=== PATIENT | female | born 1990 | race Caucasian/White ===

== ENCOUNTER 2019-03-01 14:06 | Outpatient (RCR) | payer OTHER, SELFPAY ==
--- NOTE | 2019-03-01 15:01 | HP.PTEVAL_ITS ---
Patient's Visit Information RONALDO WHITTEN is a 28 year old F referred to Physical Therapy by VERNA Townsend with a diagnosis of LBP. Date of Evaluation: 03/01/19 Physical Therapist: BLADIMIR Lewis - Visit Plan Frequency: 2x /Week Duration: 4 Weeks Plan: 2X/ week for 4 weeks for AT for neutral spine core stability, postural exercises, hip strength with HEP - Subjective Findings: For about a month had dull ache back pain and then it went into extreme pain. Took some images and ER (February 15) said DDD and her Dr said it was a HD. Current symptoms: sharp stabbing pain if stride with walking, can't sit or stand for greater than 30 min and will get sharp pain. She has not been lifting but hard with her little ones at home. Pt reports that her pain is even on bothe sides and just to the knee. SHe has a desk job. Pt is seeing a pain Dr tomorrow. Pain in L hip and down to L side ( lateral) pain. - Pain Back pain Pain Intensity (Out of 10): 6 L leg Pain Intensity (Out of 10): 6 - Objective Gait: normal gait pattern. Trunk AROM: ext 75%, flexion 75%. + SLUMP test on the L. +SLR test on the L. LE MMT: Pt is able to walk on heels and on toes without issue but does have increase back pain on the L when walking on her heels. B hip flex 4-/5, B knee ext 4-/5, B knee flex 4-/5, B hip abd 4/5, pt is able to do 3/4 normal ROM bridge but has some pain with it. Prone lying X 4 min ( started with pain in mid back and down the L into buttock)...... pain stayed about the same. Prone lying to TIM X 10 no change in pain. Prone to press up X 10 ( no change in pain ... pain was still in LB and L hip). Supine DKC X 10 ..... no change in hip pain or back pain. - Goals Goal 1:: I HEP Goal Time Frame: 4-6 Weeks Goal 2:: Decrease back and L leg pain to 2/10 after sitting or standing Goal Time Frame: 4-6 Weeks Goal 3:: Be able to sit at work or stand for 30 min with less than 4/10 back pain Goal Time Frame: 4-6 Weeks - Rehabilitation Potential Rehabilitation Potential: Good - Anticipated Interventions Patient/Client Instruction: Educate patient on: Condition, Plan of Care For the Purpose of:: To decrease pain, To increase ROM, To improve nutrient delivery to tissue, To improve muscle performance and motor function, To improve ability to perform ADL's, To improve performance and independence with ADL's, To decrease level of supervision to perform tasks, To improve ability of physical actions for home/community/work/leisure, To improve gait and locomotor functions, To improve health of tissue, To decrease soft tissue restriction, To increase flexibility/ROM Therapeutic Exercise to Include: Strength training, Postural training, Flexibilty training, Gait and locomotor training, Active ROM, Dynamic Lumbar Stabilization, Nilam Exercises For the Purpose of:: To decrease pain, To decrease swelling/inflammation, To increase ROM, To improve nutrient delivery to tissue, To improve muscle performance and motor function, To improve ability to perform ADL's, To increase tolerance to activity/condition/position, To improve performance and independence with ADL's, To decrease level of supervision to perform tasks, To improve ability of physical actions for home/community/work/leisure, To improve gait and locomotor functions, To improve health of tissue, To decrease soft tissue restriction Thank you for the opportunity to evaluate your patient. For Medicare and Medicare HMO plans, please review the plan of care and approve it. It will need to be FAXED BACK to us at [phone] for Medicare purposes. For Medicare only, by signing this I certify the plan of care. Please let me know if there are questions or concerns regarding this plan of care. Physician Signature: Date:
--- NOTE | 2019-06-08 11:18 | HP.PTDCNRP_ITS ---
HP - Discharge Summary (1) - Patient Information RONALDO WHITTEN was seen in my office for initial evaluation on 03/01/19. The following Plan of Care was established for this patient: Initial Frequency: 2x /Week Initial Duration: 4 Weeks - Anticipated Interventions Patient/Client Instruction: Educate patient on: Condition, Plan of Care For the Purpose of:: To decrease pain, To increase ROM, To improve nutrient delivery to tissue, To improve muscle performance and motor function, To improve ability to perform ADL's, To improve performance and independence with ADL's, To decrease level of supervision to perform tasks, To improve ability of physical actions for home/community/work/leisure, To improve gait and locomotor functions, To improve health of tissue, To decrease soft tissue restriction, To increase flexibility/ROM Therapeutic Exercise to Include: Strength training, Postural training, Flexibilty training, Gait and locomotor training, Active ROM, Dynamic Lumbar Stabilization, Nliam Exercises For the Purpose of:: To decrease pain, To decrease swelling/inflammation, To increase ROM, To improve nutrient delivery to tissue, To improve muscle performa nce and motor function, To improve ability to perform ADL's, To increase tolerance to activity/condition/position, To improve performance and independence with ADL's, To decrease level of supervision to perform tasks, To improve ability of physical actions for home/community/work/leisure, To improve gait and locomotor functions, To improve health of tissue, To decrease soft tissue restriction This patient was last seen in our office 03/01/19. Pertinent comments regarding their Physical therapy will appear below: Pt cancelled her 2 two appointments after her initial eval. SHe will be discharged at this time. At this point I will be discontinuing this patient from physical therapy. I would be happy to see this patient again in the future if found appropriate by the physician. Thank you! Lidya Mcgee, MPT
== END 2019-03-01 19:00 | disposition home or self-care (01) ==
LOC: PT 14:06
PROVIDERS: Family Provider Physician Assistant Medical; PCP Physician Assistant Medical; Referring Provider Physician Assistant Medical; Visit Provider Physician Assistant Medical
DX: M54.5 Low back pain (principal)
CPT/HCPCS: 97161

== ENCOUNTER 2020-01-01 21:25 | Emergency (ER) | payer OTHER, SELFPAY ==
[2020-01-01 21:25] VITALS: BP 145/80; PULSE 88; RESP 18; TEMP 36.7; O2SAT 96; BMI 40.8; BMI 41.7
--- NOTE | 2020-01-01 21:45 | ED.DCSUM_ITS ---
History of Present Illness Chief Complaint: Back Informant: Patient Onset: Yesterday Context: Sudden Onset Injury: Lifting, Twisting, Bending, - - Housework Timing: Continuous Quality: Dull, Aching Location: Lumbar, Left Leg - Lateral proximal half of the left thigh Current Severity: Mild Maximum Severity: Severe Worsened by: improves with: Movement, Bending Relieved by: Nothing Associated Symptoms: Radiation to Right Leg, - - She denies bowel bladder dysfunction. She denies saddle paresthesia or anesthesia. She denies foot drop. She denies buckling of her knees. She denies trauma. She denies fever or chills. She had similar problem last year and had imaging performed i.e. x- rays and CAT scan. She states she was told that she had an abnormality of her sacrum. Narrative: Patient is a 29-year-old woman who presents with low back pain that radiates lateral proximal portion of the left thigh. She has no neurovascular findings or symptoms. Patient does endorse 60 pound weight gain over the past 12 months. She denies dysuria, frequency, urgency or hematuria. She denies rash. She denies any allergies to medication. 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 (2) Iron deficiency Status: Chronic (3) History of cholecystectomy Status: Inactive Past Medical History - Allergies and Home Meds Allergies/Adverse Reactions: Allergies No Known Allergies Allergy (Verified 01/01/20 21:29) Primary Care Physician: Danielle Clark PA [NON-STAFF] - Prior records reviewed: Yes Surgical History: noncontributory Lives: Spouse/ Significant Other, With Family Smoking Status: Never smoker Alcohol: Rare Drugs: None Review of Systems General: Denies: Chills, Fever, Sweats, Weight loss Eyes: Denies: Visual changes - bilaterally, Blurred Vision - bilaterally, Diplo imani ENT: Denies: Rhinorrhea, Sore throat Cardiovascular: Denies: Chest pain, Palpitations Respiratory: Denies: Dyspnea, Cough, Dyspnea on exertion Gastrointestinal: Denies: Abdominal pain, Nausea, Vomiting, Diarrhea, Melena, Hematochezia Genitourinary: Denies: Dysuria, Hematuria, Frequency Musculoskeletal: Reports: Back pain, Extremity Pain. Denies: Myalgias, Arthralgias, Neck pain, Swelling, -, - Skin: Denies: Rash, Wounds Neurological: Denies: Headache, Weakness, Parasthesia, Numbness Hematologic: Denies: Easy bruising, Easy bleeding Physical Exam Vital Signs/Narrative: Vital Signs Temp Pulse Resp BP Pulse Ox 01/01/20 21:25 98.0 F 88 18 145/80 H 96 Inital Vital Signs reviewed: Yes General: Well nourished, Well developed, Obese Head: Normocephalic, Atraumatic Eyes: Perrl, EOMI. Negative for: Pale conjunctiva, Scleral icterus ENT: Moist mucous membranes, No rhinorrhea Neck: Supple, Nontender Cardiovascular: Regular rate, Regular rhythm, No murmurs, Normal S1, Normal S2 Respiratory: No distress, CTA bilaterally, Chest nontender Abdomen: Soft, Nontender, Nondistended, Normal bowel sounds Back: Normal Inspection, Paraspinal Tenderness, Negative SLR - Right, Negative SLR - Left, - - There is midline tenderness that is out of proportion to tactile stimulus.. Negative for: CVA tenderness Extremeties: Nontender, No edema, Strong Pulses, Symmetric. Negative for: Tenderness, Edema Skin: Normal color, No rash, No Trauma. Negative for: Cyanosis, Diaphoresis, Jaundice Neuro: Alert, Oriented, Normal Strength, Normal Sensation, Normal DTR, Normal Gait, Normal Reflexes - 3+ at the patella and ankle and symmetric. There is no clonus or Babinski sign noted., - - EHL is intact. 5/5 strength plantar and dorsiflexion of her feet. Unable to stand to assess for quadricep weakness. Reflexes: Negative for: Right Clonus, Right Babinski, Left Clonus, Left Babinski Psychological: Normal affect Diagnostic/Tx/Re-eval - Medical Decision Making Patient has pain with 5 degrees elevation left lower extremity. She has increased pain when the leg is lowered to the bed especially if she assists. Since there are no neurovascular findings and no history of trauma imaging was not obtained. She was medicated with IV morphine and Toradol. Will reassess in 30 to 45 minutes. Differential is degenerative disc disease, discitis, herniated disc. Based on history and physical findings most likely is muscular low strain with degenerative disc disease. She was reassessed at 2221. When asked how she was doing and any improvement. She began to cry and say it severe . Patient was reassessed at 20 311. She is no longer crying. She states she feels slightly dizzy. She was informed this is due to the morphine. Her pain has improved. Since there are no neurovascular findings and this is a chronic process with acute exacerbation patient was discharged home with appropriate home-going instructions. ED Disposition - Plan for ED Patient: Disposition: Home or Assisted Living Diagnosis: Acute low back pain without sciatica Instructions: ED Back Pain Acute or Chronic Referrals: Danielle Clark PA [NON-STAFF] - As Needed
[2020-01-01] MEDS: Ondansetron 4 MG/2 ML Vial IV (21:48)
[2020-01-01] MEDS: Morphine 4 MG/ML Syringe IV (21:48)
[2020-01-01] MEDS: Ketorolac 15 MG/ML Vial IV (21:54)
[2020-01-01] MEDS: morphine 8 MG/ML Syringe 6 MG IV (22:53)
[2020-01-01 22:56] VITALS: BP 137/89; PULSE 80; RESP 15; O2SAT 95
[2020-01-01 23:21] VITALS: BP 141/95; PULSE 82; RESP 16; O2SAT 96
== END 2020-01-01 23:22 | disposition home or self-care (01) ==
PROVIDERS: Emergency Provider Emergency Medicine
DX: M54.5 Low back pain (principal); E06.3 Autoimmune thyroiditis; E61.1 Iron deficiency; E66.9 Obesity, unspecified; Z90.49 Acquired absence of other specified parts of digestive tract; Z79.899 Other long term (current) drug therapy
CPT/HCPCS: 96374; 96375; 96376; 99284; A4216; J2405

== ENCOUNTER 2020-01-02 15:49 | Emergency (ER) | payer OTHER, SELFPAY ==
[2020-01-01 21:25] VITALS: BMI 41.7
[2020-01-02 15:51] VITALS: BP 146/90; PULSE 103; RESP 18; TEMP 36.1; O2SAT 96; BMI 37.6
[2020-01-02] MEDS: diazePAM 5 MG Tablet PO (16:10)
--- NOTE | 2020-01-02 16:10 | ED.VISSUMM ---
- ER Visit Summary Date of Service: 01/02/20 Chief Complaint: Back pain History of Present Illness: The patient is a 29 F presenting with back pain. She has history of chronic back pain. She states yesterday she started having right low back pain radiating to her right leg. She states she has been doing housework and cleaning her kitchen but denies any other trauma. She has tried Advil at home. She was seen in the ED yesterday and was given morphine and discharged. She continues to have back pain. She denies bowel or bladder incontinence. She is able to ambulate with pain. No numbness or weakness. No fever. She states her urine has been foul-smelling but denies dysuria, frequency, urgency. Physical Examination: Vitals are stable. Patient is afebrile. Alert no acute distress. HEENT exam is unremarkable. Neck is supple. Lungs are clear and equal bilaterally. Heart is regular rate and rhythm. Back: Right paraspinal lumbar muscle tenderness. Straight leg raise positive at 30 degrees on the right. Normal strength and sensation. No foot drop. Extremities are unremarkable. Skin is warm and dry. No focal neurologic deficit. Remainder of exam is unremarkable. Emergency Department Course and Treatment: Patient was given Valium with improvement. Urinalysis shows 0-5 white blood cells, positive nitrite, 3+ bacteria. Urine culture was sent. She was given Keflex and a prescription for Keflex. She is given short course of Valium. She is advised to follow up with her primary care physician. Advised return to the ED for worsening complaints. Disposition: Discharge home Impression: Acute on chronic back pain This note was generated with [employer] dictation software. It may contain incorrect words, spelling, and punctuation that were not noted in review of the chart prior to signing ED Disposition - Plan for ED Patient: Referrals: Care Physician,No Primary [NON-STAFF] -
[2020-01-02 16:24] LABS: Mucous, Urine 0 SEEN /hpf (<or=2+); Red Blood Cells-Urine 0 SEEN /hpf (0-5); Squamous Epithelial Cells - UA 0 SEEN /hpf (5-10)
[2020-01-02 16:32] LABS: Color, Urine Yellow (Yellow); Glucose, Dipstick Normal (Normal); Ketone-Dipstick Negative (Negative); Leukocyte Esterase-Dipstick 25 /ul (Negative); Nitrite-Dipstick Positive (Negative); Occult Blood-Urine 50 /ul (Negative); Protein-Dipstick 15 mg/dl (Negative); Urine Bilirubin Dipstick Negative (Negative); Urine Clarity Clear (Clear); Urine Urobilinogen Normal (Normal)
[2020-01-02 16:44] LABS: Bacteria 3+ /hpf (None Seen); White Blood Cells 0-5 SEEN /hpf (0-5)
--- NOTE | 2020-01-02 17:06 | ED.DEP ---
ED Disposition - Plan for ED Patient: Instructions: ED Back Pain Acute or Chronic Prescriptions: Cephalexin [Keflex] 500 mg PO Q12 #14 capsule Diazepam [Valium] 5 mg PO BID PRN PRN #5 tablet PRN Reason: Muscle Spasm Referrals: Care Physician,No Primary [NON-STAFF] -
[2020-01-02] MEDS: Cephalexin 250 MG Capsule 500 MG PO (17:17)
== END 2020-01-02 17:22 | disposition home or self-care (01) ==
LOC: ED 16:34
PROVIDERS: Emergency Provider Emergency Medicine; PCP Physician Assistant Medical
DX: M54.5 Low back pain (principal); G89.29 Other chronic pain; Z79.899 Other long term (current) drug therapy
CPT/HCPCS: 81001; 87086; 87088; 87186; 99283

== ENCOUNTER 2020-03-13 16:30 | Outpatient (RCR) | payer OTHER, SELFPAY ==
--- NOTE | 2020-07-21 10:52 | HP.PT.NRP ---
RONALDO WHITTEN was seen in my office for initial evaluation on 02/16/20. The following Plan of Care was established for this patient: Initial Frequency: 2x /Week Initial Duration: 4 Weeks Patient/Client Instruction: Educate patient on: Condition, Plan of Care For the Purpose of:: To decrease pain, To increase ROM, To improve muscle performance and motor function, To improve ability to perform ADL's, To increase tolerance to activity/condition/position, To improve ability of physical actions for home/community/work/leisure, To improve health of tissue, To decrease soft tissue restriction, To increase flexibility/ROM, To improve ability to perform tasks related to life management Therapeutic Exercise to Include: Strength training, Body mechanics, Postural training, Flexibilty training, Dynamic Lumbar Stabilization, Олег Exercises For the Purpose of:: To decrease pain, To increase ROM, To improve muscle performance and motor function, To improve ability to perform ADL's, To increase tolerance to activity/condition/position, To improve ability of physical actions for home/community/work/leisure, To improve health of tissue, To decrease soft tissue restriction, To increase flexibility/ROM, To improve ability to perform tasks related to life management TENS: Yes IF ES: Yes Cryotherapy (ice pack, ice massage): Yes Thermo therapy (hot pack): Yes Ultrasound (thermal/non thermal): Yes For the Purpose of:: To decrease pain, To increase ROM, To improve health of tissue, To decrease soft tissue restriction This patient was last seen in our office . Pertinent comments regarding their Physical therapy will appear below: This patient seen for PT for lumbar pain with олег ex's ,DLS and postural ex's. Doing well thus is d/c At this point I will be discontinuing this patient from physical therapy. I would be happy to see this patient again in the future if found appropriate by the physician. Thank you! Benjie Bourne, PT, Cert MDT, OCS
== END 2020-03-13 19:00 | disposition home or self-care (01) ==
LOC: PT 16:30
PROVIDERS: PCP Physician Assistant Medical; Referring Provider Internal Medicine; Visit Provider Internal Medicine
DX: M54.5 Low back pain (principal)
CPT/HCPCS: 97014; 97032; 97110; 97162; G0283

== ENCOUNTER → 2020-12-26 13:08 | Outpatient (CLI) | payer BC, SELFPAY ==
[2020-10-31 08:11] VITALS: BMI 41.2
[2020-12-26 15:33] LABS: Absolute Lymphocyte Count 2.24 X10^3/uL (0.83-4.51); Absolute Neutrophil Count 3.1 X10^3/uL (2.0-7.7); Basophil# 0.06 X10^3/uL; Eosinophil# 0.36 X10^3/uL; Eosinophils% 5.7 % (0-5); Hematocrit 41.1 % (37-47); Hemoglobin 13.3 g/dL (12.0-15.0); Lymphocyte # 2.24 X10^3/ul (0.83-4.51); Lymphocyte % 35.7 % (19-41); Mean Corp Hgb Conc 32.4 g/dL (32-36); Mean Corpuscular Hgb 29.8 pg (27.0-32.0); Mean Corpuscular Volume 92.2 fL (81-99); Mean Platelet Vol. 9.6 fl (6.2-12.0); Monocyte# 0.51 X10^3/uL; Monocyte% 8.1 % (0-10); NRBC Flagged by Analyzer 0 % (0-5); Neutrophil # 3.09 X10^3/uL (2.7-7.7); Neutrophil % 49.3 % (47-70); Platelet Count 402 K/mm3 (150-450); RBC Distribution Width CV 12.7 % (11.6-14.6); RBC Distribution Width SD 42.9 fl (35.1-43.9); Red Blood Count 4.46 M/mm3 (4.2-5.4); White Blood Count 6.3 K/mm3 (4.4-11.0)
[2020-12-26 16:10] LABS: Vitamin B12 438 pg/mL (211-911); Vitamin D,25 Hydroxy 12.4 ng/mL
[2020-12-26 16:19] LABS: Ferritin 39 ng/mL (8-252); T4 Free Direct 1.24 ng/dL (0.76-1.46); Thyroid Stim Hormone (TSH) 4.41 uIU/mL (0.358-3.74)
== END ==
LOC: BIMLAB 13:09
PROVIDERS: PCP Physician Assistant Medical; Referring Provider Internal Medicine Endocrinology, Diabetes & Metabolism; Visit Provider Internal Medicine Endocrinology, Diabetes & Metabolism
DX: E61.1 Iron deficiency (principal); E03.8 Other specified hypothyroidism; E06.3 Autoimmune thyroiditis; E56.9 Vitamin deficiency, unspecified; E55.9 Vitamin D deficiency, unspecified
CPT/HCPCS: 36415; 82306; 82607; 82728; 84439; 84443; 85025

== ENCOUNTER 2021-10-30 08:15 | Outpatient (CLI) | payer OTHER, SELFPAY ==
[2021-10-30 13:08] LABS: T4 Free Direct 0.85 ng/dL (0.76-1.46); Thyroid Stim Hormone (TSH) 8.99 uIU/mL (0.358-3.74)
[2021-10-30 13:13] LABS: Vitamin D,25 Hydroxy 17.6 ng/mL
== END 2021-10-30 23:59 | disposition home or self-care (01) ==
LOC: BIMLAB 08:20
PROVIDERS: PCP Physician Assistant Medical; Referring Provider Internal Medicine Endocrinology, Diabetes & Metabolism; Visit Provider Internal Medicine Endocrinology, Diabetes & Metabolism
DX: E55.9 Vitamin D deficiency, unspecified (principal); E03.8 Other specified hypothyroidism; E06.3 Autoimmune thyroiditis
CPT/HCPCS: 36415; 82306; 84439; 84443

== ENCOUNTER 2022-05-23 08:07 | Day surgery (SDC) | payer OTHER, SELFPAY ==
[2022-05-23] VITALS (13 sets, daily range): BP systolic 120–144; BP diastolic 84–108; PULSE 77–100; RESP 16–20; TEMP 36.3–37.1; O2SAT 92–98; BMI 42.3
--- NOTE | 2022-05-23 | IMM_PTH ---
PATIENT: RONALDO WHITTEN [place] [facility] [place][id number] AGE/SX: 32/F ROOM: RE05/23/[address]: Dr. Meena Wheeler DO : 1990 BED: DIS: 05/23/2022 SPEC #: [id number] RECD: 05/27/22 13:51 STATUS: ANA REQ #: [id number] BERENICE: 05/23/22 00:[address]: Meena Wheeler DEPT: IMMUNOHISTOCHEMISTRY RECD BY: Alena Dougherty ENTERED: 05/27/22 13:52 SP TYPE: IMMUNO OTHR DR: VERNA Townsend Tissues: B - Uterine cervix, NOS Procedures: p16 (initial) KI-67 (add) P16 (add) PHYSICIAN & INSTITUTION [address] [address] SPECIMEN INFORMATION: Tissue Source: B ? Cervical biopsy Clinical Info: Pelvic pain after Essure, sterilization Specimen Number: [id number] B2 & B3 CPT code: 67915, 81332 x3 METHODOLOGY: Deparaffinized sections of prefer/formalin-fixed tissue or PAP/DQ stained slides are incubated with monoclonal/polyclonal antibodies/oligonucleotide probes. Localization is made via biotin free immunoperoxidase method. Appropriate controls are performed and reacted as expected. Results on target cell population are indicated in the following table: RESULTS: ANTIBODY / CLONE RESULT Block B2 P16 (E6H4) negative Ki-67 (30-9) negative Block B3 P16 (E6H4) negative Ki-67 (30-9) negative These tests were developed and their performance characteristics determined by [facility]. They may not have been cleared or approved by the U.S. Food and Drug Administration. The FDA has determined that such clearance or approval is not necessary. The above immunohistochemical/dualISH markers are ordered and reviewed by the Pathologist. INTERPRETATION: Juan R Cervix, LEEP conization: No evidence of dysplasia. AM:sergio 05/28/2022
[2022-05-23] MEDS: Lactated Ringers 1,000 ML 15 ML IV (08:10)
[2022-05-23 08:44] LABS: Internal QC Validated? YES +Cl - CLEAR BKGD; Pregnancy, Urine Negative Negative
[2022-05-23 08:45] LABS: Hematocrit 42.3 % (37-47); Hemoglobin 13.8 g/dL (12.0-15.0); Mean Corp Hgb Conc 32.6 g/dL (32-36); Mean Corpuscular Hgb 29.9 pg (27.0-32.0); Mean Corpuscular Volume 91.8 fL (81-99); Mean Platelet Vol. 9.3 fl (6.2-12.0); Platelet Count 391 K/mm3 (150-450); RBC Distribution Width CV 12.2 % (11.6-14.6); RBC Distribution Width SD 41.3 fl (35.1-43.9); Red Blood Count 4.61 M/mm3 (4.2-5.4); White Blood Count 6.4 K/mm3 (4.4-11.0)
[2022-05-23 09:07] LABS: Thyroid Stim Hormone (TSH) 0.27 uIU/mL (0.358-3.74)
--- NOTE | 2022-05-23 09:50 | FALS_PTH ---
PATIENT: RONALDO WHITTEN [place] [facility] [place][id number] AGE/SX: 32/F ROOM: RE05/23/[address]: Dr. Meena Wheeler DO : 1990 BED: DIS: 05/23/2022 SPEC #: [id number] RECD: 05/23/22 15:01 STATUS: ANA SERENE #: [id number] BERENICE: 05/23/22 09:[address]: Meena Wheeler DEPT: SURGICAL PATHOLOGY RECD BY: Re Cowan ENTERED: 05/24/22 09:57 SP TYPE: FALL TUBES OTHR DR: VERNA Townsend Tissues: A - Fallopian tube B - Uterine cervix, NOS C - Endocervical Procedures: Surgery Specimen Level II Surgery Specimen Level IV Surgery Specimen Level V HEADER OPERATION: Laparoscopic salpingectomy with Essure device removal PRE-OP DIAGNOSIS: Pelvic pain after Essure placement, sterilization TISSUE SUBMITTED: A - Bilateral fallopian tubes, B - Cervix, LEEP conization, C - Endocervical curettings MICROSCOPIC DIAGNOSIS A. Right and left fallopian tubes, bilateral salpingectomies: Complete cross-sections of fallopian tubes with no pathologic change. B. Cervix, LEEP conization: No pathologic change. See comment. C. Endocervix, curettings: Rare strips of benign superficial glandular mucosa. AM:sergio 05/27/2022 AM:sergio 05/28/2022 COMMENT B. Results from immunohistochemistry ([id number]) for surrogate HPV marker (p16) will be reported separately. Case has been reviewed in consultation with Dr. Mack who concurs with the above diagnosis. IDC:SJ MICROSCOPIC DESCRIPTION Slides are reviewed. GROSS DESCRIPTION A - Received in fixative is one container labeled with the patient's name and designated bilateral fallopian tubes. The specimen consists of bilateral fallopian tubes including fimbrial ends. One fallopian tube measures 8 cm in length and 0.5 cm in diameter. The second fallopian tube is received in multiple pieces and measures 7.5 cm in length and 0.4 cm in diameter. The fallopian tube received in multiple pieces also shows a metallic coiled wire device consistent with Essure device. No Essure device is noted in the intact fallopian tube. The fallopian tubes are not identified as right or left. Sections reveal unremarkable cut surfaces. Vice President Education sections are submitted in two cassettes as follows: 1 - intact fallopian tube, 2 - fallopian tube received in multiple pieces. B - Received in fixative is one container labeled with the patient's name and designated cervix, LEEP conization. The specimen consists of three pieces of valenzuela, indurated tissue measuring 1.1 x 0.6 x 0.3 cm and 1 x 0.5 x 0.2 and 1 x 0.5 x 0.3 cm. All three pieces are inked and serially sectioned. The entire specimen is submitted in three cassettes with each cassette containing one piece. C - Received in fixative is one container labeled with the patient's name and designated endocervical curettings. The specimen consists of multiple irregular fragments of valenzuela mucoid tissue that in aggregate measure 0.5 x 0.1 x 0.1 cm. The specimen is totally submitted in one cassette. / SJ:rg 05/24/2022 TC:3 CPT: 57653 x2, 08974 , 86536
--- NOTE | 2022-05-23 09:50 | FALS_PTH ---
PATIENT: RONALDO WHITTEN LOC: [facility] – [place] U#:[id number] AGE/SX: 32/F ROOM: RE05/23/[address]: Dr. Meena Wheeler DO : 1990 BED: DIS: 05/23/2022 SPEC #: [id number] RECD: 05/23/22 15:01 STATUS: ANA SERENE #: [id number] BERENICE: 05/23/22 09:[address]: Meena Wheeler DEPT: SURGICAL PATHOLOGY RECD BY: Re Cowan ENTERED: 05/24/22 09:57 SP TYPE: FALL TUBES OTHR DR: VERNA Townsend Tissues: A - Fallopian tube B - Uterine cervix, NOS C - Endocervical Procedures: Surgery Specimen Level II Surgery Specimen Level IV HEADER OPERATION: Laparoscopic salpingectomy with Essure device removal PRE-OP DIAGNOSIS: Pelvic pain after Essure placement, sterilization TISSUE SUBMITTED: A ? Bilateral fallopian tubes, B ? Cervical biopsy, C ? Endocervical curettings MICROSCOPIC DIAGNOSIS A. Right and left fallopian tubes, bilateral salpingectomies: Complete cross-sections of fallopian tubes with no pathologic change. B. Cervix, biopsy: No pathologic change. See comment. C. Endocervix, curettings: Rare strips of benign superficial glandular mucosa. AM:sergio 05/27/2022 COMMENT B. Results from immunohistochemistry ([id number]) for surrogate HPV marker (p16) will be reported separately. Case has been reviewed in consultation with Dr. Mack who concurs with the above diagnosis. IDC:SJ MICROSCOPIC DESCRIPTION Slides are reviewed. GROSS DESCRIPTION A - Received in fixative is one container labeled with the patient's name and designated bilateral fallopian tubes. The specimen consists of bilateral fallopian tubes including fimbrial ends. One fallopian tube measures 8 cm in length and 0.5 cm in diameter. The second fallopian tube is received in multiple pieces and measures 7.5 cm in length and 0.4 cm in diameter. The fallopian tube received in multiple pieces also shows a metallic coiled wire device consistent with Essure device. No Essure device is noted in the intact fallopian tube. The fallopian tubes are not identified as right or left. Sections reveal unremarkable cut surfaces. Director Of Outside Sales sections are submitted in two cassettes as follows: 1 - intact fallopian tube, 2 - fallopian tube received in multiple pieces. B - Received in fixative is one container labeled with the patient's name and designated cervical biopsy. The specimen consists of three pieces of valenzuela, indurated tissue measuring 1.1 x 0.6 x 0.3 cm and 1 x 0.5 x 0.2 and 1 x 0.5 x 0.3 cm. All three pieces are inked and serially sectioned. The entire specimen is submitted in three cassettes with each cassette containing one piece. C - Received in fixative is one container labeled with the patient's name and designated endocervical curettings. The specimen consists of multiple irregular fragments of valenzuela mucoid tissue that in aggregate measure 0.5 x 0.1 x 0.1 cm. The specimen is totally submitted in one cassette. / SJ:rg 05/24/2022 TC:3 CPT: 92237 x2, 40414 x2
--- NOTE | 2022-05-23 10:32 | DCINST_ITS ---
Discharge Instructions Diet Discharge Diet: No restrictions Activity Discharge Activity: May Drive (Once you are no longer taking Percocet, and you feel you can slam on a brake or turn a steering wheel sharply) and May Shower May resume sexual activity in: 4 weeks (No intercourse, tampons, hot tubs, baths, or pools for 4 weeks) Ice area for (Minutes): 15 Weight Bearing Status: Weight bearing as tolerated Lifting Restrictions: Nothing greater than 10-15 pounds for 1st week Dressing / Incision Call your doctor if your incision/area has: Continuous Slow Oozing, Sudden Increased Bleeding, Increased Pain/ Swelling, Increased Redness, Foul Smelling Discharge and Swelling at the incision site Call your doctor if you observe: Fever of 101 or Higher, Coldness, Increased Pain, Numbness or Tingling, Change in Color, Inability to urinate, Inability to have a bowel movement, Using more than 1 pad per hour, Shortness of breath, Dizziness, Fainting spells, Swelling in the ankles, Chest pain, Increased palpitations (irregular heartbeat), Calf discomfort and Uncontrolled pain Remove Dressing in: leave until fall off Cleanse incision/area with: Soap & Water Follow Up Care Please Follow Up With: Meena Wheeler DO When: 1 week for incision check and follow up Test Results: Test results from this visit will be discussed in further detail at your follow- up appointment, if applicable. Discharge Plan Admission Primary Reason for Your Visit: surgery Attending Provider: Meena Wheeler Primary Care Provider: Danielle Clark Discharge Orders/Prescriptions Prescriptions: New oxycodone-acetaminophen [Percocet] 5-325 mg tablet 1 tab PO Q6H PRN (Reason: pain) 7 Days Qty: 10 0RF ibuprofen 600 mg tablet 600 mg PO Q6H PRN (Reason: pain) Qty: 20 0RF Continued multivitamin Tablet 1 tab PO DAILY levothyroxine 175 mcg tablet 175 mcg PO DAILY Referrals / Follow Up: Danielle Clark PA [Primary Care Provider] - Disposition Disposition (needs filled in before D/C Order can be placed): Home, Self Care
--- NOTE | 2022-05-23 10:33 | OP.PCM_ITS ---
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 Essure devices were in the proper location within the fallopian tubes. Normal-appearing uterus. Normal-appearing bilateral fallopian tubes and bilateral ovaries. No descent of uterus and cervix. Surgeon: Meena Wheeler chemistry faculty member: Rishi MACK Type of Anesthesia: General Special Medications: None Specimen's removed: Bilateral fallopian tubes Bilateral Essure coils Cervical biopsy Endocervical curettings Drains: None Estimated Blood Loss (mL): < 50 cc Fluids Replaced: 1200 cc Description of Procedure: Patient was taken to the operating room where general anesthesia was induced. She was prepped and draped in the dorsal lithotomy position using yellowfin stirrups. From below a weighted speculum was placed and single-tooth tenaculum was placed on the anterior lip of the cervix. An acorn uterine manipulator was placed. The weighted speculum was removed. Gloves were changed and attention was turned to the abdominal portion of the case. Local was infiltrated at all port sites. An infraumbilical incision was made to accommodate a 5 mm port. The 5 mm port was placed using the laparoscope under direct visualization. Once confirmed intraperitoneal CO2 insufflation was initiated. The abdomen was inspected and no injury was noted upon entry. The patient was placed in Trendelenburg. A right lateral 5 mm port was placed. A left lateral 5 mm port was placed. The pelvis was inspected and noted to be normal-appearing. Starting on the left side the left fallopian tube was followed out to the fimbriated end and elevated out of the pelvis. The mesosalpinx was serially clamped, cauterized, and transected using the LigaSure device. Once at the leve l of the cornua the left fallopian tube was transected and removed. The remaining Essure coil was removed from the left cornua easily using gentle traction, and the coil was removed from the abdomen. The left cornua was cauterized using LigaSure device. The same was performed on the right. The right fallopian tube was followed out to the fimbriated end and elevated out of the pelvis. The mesosalpinx was serially clamped, cauterized, and transected until reaching the level of the cornua. Once at the level of the cornua the right fallopian tube was transected and removed from the abdomen. The remaining Essure coil device was removed with gentle traction, and it was removed easily. The right cornua was cauterized using LigaSure device. Good hemostasis was noted. The abdomen was exsufflated and all port sites were removed. The incision sites were closed with Monocryl and glue. Attention was then turned to below. Instruments were removed from the vagina. An insulated speculum was placed into the vagina. An insulated single-tooth tenaculum was placed on the anterior lip of the cervix. 1% lidocaine with epinephrine was injected. Using a size 15 mm x 12 mm round loop, a cervical cone biopsy was performed in usual fashion. Endocervical curettings were performed. The rollerball was used to cauterize the endocervix and the cervical bed. Hemostasis was noted. Monsel's was placed. All instruments were removed from the vagina. Vaginal sweep was performed. Instrument, sponge, sharp counts were correct. Patient was taken to recovery room in stable condition. Grafts/Implants Used: None Procedure Start Time: 11:05 Procedure Stop Time: 12:25 Complications None Admit VTE Documentation VTE Present on Admission: No VTE Mechan Device Prophylaxis: SCD's
[2022-05-23] MEDS: Lidocaine 1% /Epi 1:100 (20ml) 20 ML Vial (12:06)
[2022-05-23] MEDS: FERRIC SUBSULFATE 8 GM SOLN (12:16)
== END 2022-05-23 15:53 | disposition home or self-care (01) ==
LOC: SDC 08:09 → AC 08:11
PROVIDERS: Anesthesiology; PCP Physician Assistant Medical; Referring Provider Obstetrics & Gynecology; Visit Provider Obstetrics & Gynecology
PROC: (CPT 58661; principal; 2022-05-23 09:35)
DX: Z30.2 Encounter for sterilization (principal); G89.29 Other chronic pain; R10.2 Pelvic and perineal pain; R87.619 Unspecified abnormal cytological findings in specimens from cervix uteri; E03.9 Hypothyroidism, unspecified; Z79.899 Other long term (current) drug therapy
CPT/HCPCS: 58661; 00840; 81025; 84443; 85027; 86850; 86900; 86901; 88302; 88305; 88307; 88341; 88342; J7120; J2405

== ENCOUNTER → 2022-10-23 | Outpatient (CLI) | payer OTHER, SELFPAY ==
[2022-10-23 12:43] LABS: Vitamin D,25 Hydroxy 16.7 ng/mL
[2022-10-23 13:13] LABS: T4 Free Direct 1.53 ng/dL (0.76-1.46); Thyroid Stim Hormone (TSH) 0.87 uIU/mL (0.358-3.74)
== END | disposition home or self-care (01) ==
LOC: BIMLAB 08:55
PROVIDERS: PCP Physician Assistant Medical; Referring Provider Internal Medicine Endocrinology, Diabetes & Metabolism; Visit Provider Internal Medicine Endocrinology, Diabetes & Metabolism
DX: E03.8 Other specified hypothyroidism (principal); E06.3 Autoimmune thyroiditis; E56.9 Vitamin deficiency, unspecified
CPT/HCPCS: 36415; 82306; 84439; 84443

== ENCOUNTER 2023-08-22 07:16 | Day surgery (SDC) | payer OTHER, SELFPAY ==
--- NOTE | 2023-08-22 | EMB_PTH ---
PATHOLOGY RESULTS PATIENT: RONALDO WHITTEN LOC: [facility] [place] U#:[id number] AGE/SX: 33/F ROOM: RE08/22/[address]: Dr. Meena Wheeler DO : 1990 BED: DIS: 08/22/2023 SPEC #: [id number] RECD: 08/22/23 12:05 STATUS: ANA SERENE #: [id number] BERENICE: 08/22/23 00:[address]: Meena Wheeler DEPT: SURGICAL PATHOLOGY RECD BY: Lakesha Sahni ENTERED: 08/22/23 12:06 SP TYPE: ENDOM BX/C Tissues: Endometrium, NOS Procedures: Surgery Specimen Level IV HEADER OPERATION: Hysteroscopy, D & C Symphion PRE-OP DIAGNOSIS: Endometrial polyp, abnormal uterine bleeding TISSUE SUBMITTED: Endometrial curettings MICROSCOPIC DIAGNOSIS Endometrial curettings: Disordered proliferative endometrium. SJ:sergio 08/26/2023 MICROSCOPIC DESCRIPTION Slides are reviewed. GROSS DESCRIPTION Received in fixative is one container labeled with the patient's name and designated endometrial curettings. The specimen consists of multiple irregular fragments of pink soft tissue mixed with blood clot that in aggregate measure 5.0 x 3.0 x 0.2 cm. The entire specimen is submitted in two cassettes. / SJ:rg 08/22/2023 TC:5 CPT: 40470 ADDENDUM ADDENDUM 09/03/2023 10:08 This addendum is added to incorporate an outside pathology consultation report sent due to routine QC review by the pathologists. The case was examined at [facility] (#[id number]) and the following diagnosis was rendered. Irregular secretory endometrium, consist of early secretory endometrium with focal area with feature of disordered proliferative endometrium with superimposed ovulation. Please see complete above mentioned consultation report in EMR
--- OUTSIDE RECORDS SUMMARY | 2023-08-22 07:22 | XMS RPT_ITS | CCD ---
Author Name Unknown Address [id number] [place] [address] Organization [facility] Care Team Providers Care Etymology Teacher Name Role Phone Cesia Sullivan Admitting Unavailable Cesia Sullivan Attending Unavailable Charito Jefferson Primary Care Provider Tavallaee, Zachery M Unavailable [phone] Unavailable Unavailable NO, PHYSICIAN Primary Care Unavailable DELPHINE ALEMAN Attending Unavailab le DELPHINE ALEMAN Attending Unavailab le NO, PHYSICIAN Primary Care Unavailable Charito Jefferson Primary Care Provider Sofi Angel Unavailable No, Physician Primary Care Provider Unavailabl Sofi Watters Attending Unavailable Sofi Melton Referring Unavailable Tavallaee, Zachery Primary Care Unavailable Tavallaee, Zachery Primary Care Unavailable Arabella Knowles Attending Unavailable Arabella Knowles Referring Unavailable Tavallaee, Zachery Primary Care Unavailable Tavallaee, Zachery Attending Unavailable Tavallaee, Zachery Referring Unavailable Charito Jefferson Primary Care Provider [phone] DASHAWN JR., ABHAY Referring Unavailable DASHAWN JR., ABHAY Admitting Unavailable NO, PHYSICIAN Primary Care Unavailable DASHAWN JR., ABHAY Attending Unavailable NO, PHYSICIAN Primary Care Unavailable DASHAWN JR., ABHAY Attending Unavailable NO, PHYSICIAN Primary Care Unavailable DASHAWN JR., ABHAY Attending Unavailable NO, PHYSICIAN Primary Care Unavailable NO, PHYSICIAN Primary Care Unavailable DASHAWN JR., ABHAY Attending Unavailable NO, PHYSICIAN Primary Care Unavailable DASHAWN JR., ABHAY Attending Unavailable NO, PHYSICIAN Primary Care Unavailable DASHAWN JR., ABHAY Attending Unavailable NO, PHYSICIAN Primary Care Unavailable DASHAWN JR., ABHAY Attending Unavailable DASHAWN JR., ABHAY Referring Unavailable DASHAWN JR., ABHAY Admitting Unavailable NO, PHYSICIAN Primary Care Unavailable Sofi Nixon Primary Care Provider [phone] Charito Jefferson Primary Care Provider SOFI BLANCO Attending Unavailable CHARITO CLARK Primary Care Unavailable JAMES WHEELER Attending Unavailable CHARITO CLARK Primary Care Unavailable SOFI BLANCO Attending Unavailable CHARITO CLARK Primary Care Unavailable SOFI BLANCO Referring Unavailable CHARITO CLARK B Primary Care Unavailable SOFI BLANCO Attending Unavailable CHARITO CLARK B Primary Care Unavailable SOFI MELTON Attending Unavailable SOFI MELTON Primary Care Unavailable SOFI MELTON Attending Unavailable SOFI MELTON Primary Care Unavailable SOFI MELTON Attending Unavailable GERONIMO SOFI Jerry Primary Care Unavailable Medications Current Medications Medication Drug Class(es) Dates Sig (Normalized) Sig (Original) 24 hr buPROPion hydrochloride 150 mg extended release oral tablet (7 sources) Aminoketone Start: 08-15-2023 take 1 tablet by mouth once daily in the morning buPROPion XL (Wellbutrin XL) 150 mg 24 hr tablet Indications: Current moderate episode of major depressive disorder without prior episode (CMS/HCC) Take 1 tablet (150 mg) by mouth once daily in the morning. Do not crush, chew, or split. 90 tablet 3 08/15/2023 Active Completed/Discontinued Medications Medication Drug Class(es) Dates Sig (Normalized) Sig (Original) azithromycin 250 mg oral tablet (5 sources) Macrolide Antimicrobial Start: 06-10-2022 End: 06-28-2022 Azithromycin 250 MG Oral Tablet TAKE DIRECTED. Quantity: 6 Refills: 0 Ordered: 10-Jun-2022 Arabella Knowles MD Start : 10-Jun-2022 End : 28-Jun-2022 Complete Problems Active Problems Problem Classification Problem Date Documented Date Episodic/Chronic Abdominal pain (2 sources) Pain in female pelvis; Translations: [Pelvic and perineal pain] Episodic Contraceptive and procreative management (1 source) Sterilization requested; Translations: [Encounter for sterilization] Episodic Fever of unknown origin (1 source) Fever; Translations: [Fever, unspecified] Episodic Mood disorders (5 sources) Moderate major depression, single episode; Translations: [Major depressive disorder, single episode, moderate] Onset: 06-27-2023 06-27-2023 Chronic Nutritional deficiencies (3 sources) Vitamin D deficiency; Translations: [Unspecified vitamin D deficiency] Onset: 03-18-2023 03-18-2023 Chronic Other connective tissue disease (2 sources) Bilateral heel pain; Translations: [Pain in right foot] Episodic Other connective tissue disease (2 sources) Disorder of Achilles tendon; Translations: [Other specified disorders of synovium and tendon, other site] Episodic Other connective tissue disease (2 sources) Plantar fasciitis; Translations: [Plantar fascial fibromatosis] Episodic Other connective tissue disease (6 sources) Pain in right foot; Translations: [Pain in right foot] Episodic Other ear and sense organ disorders (1 source) Otalgia, right ear; Translations: [Right ear pain] Episodic Other female genital disorders (1 source) Abnormal uterine bleeding; Translations: [Other specified abnormal uterine and vaginal bleeding] 07-03-2023 Chronic Other female genital disorders (4 sources) Abnormal uterine bleeding due to endometrial polyp; Translations: [Abnormal uterine and vaginal bleeding, unspecified] Onset: 07-08-2023 07-08-2023 Chronic Other female genital disorders (1 source) Other specified abnormal uterine and vaginal bleeding; Translations: [DUB (dysfunctional uterine bleeding)] Onset: 07-03-2023 Chronic Other female genital disorders (1 source) History of abnormal cervical Papanicolaou smear ; Translations: [Personal history of other diseases of the female genital tract] Episodic Other lower respiratory disease (2 sources) Cough; Translations: [Cough] Episodic Other nutritional; endocrine; and metabolic disorders (11 sources) Body mass index 30+ - obesity; Translations: [Obesity, unspecified] Onset: 01-07-2019 01-07-2019 Chronic Other nutritional; endocrine; and metabolic disorders (2 sources) Morbid obesity; Translations: [Morbid obesity] Chronic Other nutritional; endocrine; and metabolic disorders (1 source) Obesity; Translations: [Obesity, unspecified] Chronic Other nutritional; endocrine; and metabolic disorders (5 sources) Severe obesity; Translations: [Morbid (severe) obesity due to excess calories] Onset: 06-27-2023 Chronic Other nutritional; endocrine; and metabolic disorders (4 sources) Body mass index 40+ - severely obese; Translations: [Morbid (severe) obesity due to excess calories] Onset: 12-06-2022 12-06-2022 Chronic Other nutritional; endocrine; and metabolic disorders (3 sources) Morbid (severe) obesity due to excess calories; Translations: [Class 3 severe obesity with body mass index (BMI) of 40.0 to 44.9 in adult, unspecified obesity type, unspecified whether serious comorbidity present (HCC)] Onset: 12-06-2022 Chronic Other nutritional; endocrine; and metabolic disorders (3 sources) Body mass index (BMI) 40.0-44.9, adult; Translations: [Class 3 severe obesity with body mass index (BMI) of 40.0 to 44.9 in adult, unspecified obesity type, unspecified whether serious comorbidity present (HCC)] Onset: 12-06-2022 Chronic Other upper respiratory disease (3 sources) Seasonal allergy; Translations: [Allergic rhinitis, cause unspecified] Onset: 03-18-2023 03-18-2023 Chronic Other upper respiratory disease (1 source) Congestion of nasal sinus; Translations: [Other disease of nasal cavity and sinuses] Episodic Residual codes; unclassified (1 source) History of female sterilization; Translations: [Other specified postprocedural states] Episodic Residual codes; unclassified (1 source) Postoperative state; Translations: [Other specified postprocedural states] Episodic Screening and history of mental health and substance abuse codes (5 sources) Depression screening positive; Translations: [Encounter for screening for depression] Onset: 06-27-2023 06-27-2023 Episodic Spondylosis; intervertebral disc disorders; other back problems (3 sources) Low back pain; Translations: [Lumbago] Episodic Thyroid disorders (14 sources) Hypothyroidism; Translations: [Hypothyroidism, unspecified] Onset: 01-07-2019 01-07-2019 Chronic Unclassified (2 sources) Post-op Onset: 01-03-2023 Past or Other Problems Problem Classification Problem Date Documented Date Episodic/Chronic Cancer of cervix (11 sources) Low grade squamous intraepithelial lesion on cervical Papanicolaou smear; Translations: [Low grade squamous intraepithelial lesion on cytologic smear of cervix (LGSIL)] Onset: 10-21-2019 10-21-2019 Episodic Immunizations and screening for infectious disease (3 sources) Contact with and (suspected) exposure to other viral communicable diseases; Translations: [Exposure to influenza] Onset: 12-06-2022 Episodic Mood disorders (2 sources) Mood disorders Onset: 06-27-2023 06-27-2023 Other connective tissue disease (2 sources) Pain in right foot; Translations: [Pain in right foot] Onset: 09-27-2022 Episodic Other connective tissue disease (2 sources) Pain in left foot; Translations: [Pain in left foot] Onset: 09-27-2022 Episodic Other connective tissue disease (2 sources) Other specified disorders of synovium and tendon, other site; Translations: [Other specified disorders of synovium and tendon, other site] Onset: 09-27-2022 Episodic Other connective tissue disease (2 sources) Plantar fascial fibromatosis; Translations: [Plantar fascial fibromatosis] Onset: 09-27-2022 Episodic Other non-traumatic joint disorders (5 sources) Hip pain; Translations: [Pain in joint, pelvic region and thigh] Onset: 03-18-2023 Resolved: 03-18-2023 03-18-2023 Episodic Other nutritional; endocrine; and metabolic disorders (11 sources) Abnormal weight gain; Translations: [Abnormal weight gain] Onset: 01-07-2019 01-07-2019 Episodic Other screening for suspected conditions (not mental disorders or infectious disease) (2 sources) Cancer cervix screening status; Translations: [Encounter for screening for malignant neoplasm of cervix] Onset: 12-06-2022 Episodic Sexually transmitted infections (not HIV or hepatitis) (13 sources) Abnormal cervical Papanicolaou smear; Translations: [Cervical high risk human papillomavirus (HPV) DNA test positive] Onset: 10-21-2019 10-21-2019 Episodic Unclassified (2 sources) Onset: 06-27-2023 06-27-2023 Urinary tract infections (4 sources) Urinary tract infectious disease; Translations: [Urinary tract infection, site not specified] Onset: 03-19-2023 03-19-2023 Episodic Viral infection (10 sources) Verruca plantaris; Translations: [Plantar wart] Onset: 09-27-2022 Episodic Results Test Name Value Interpretation Reference Range Facil ity Vital Signs Date Time Vital Sign Value Performing Clinician Facility 07-08-2023 09:19-0500 Body weight 125.19 kg Sofi Blanco APRN.CNP Work Phone: [facility] 07-08-2023 09:19-0500 Diastolic blood pressure 86 mm[Hg] Sofi Blanco APRN.OIL PROCESS STILLMAN Work Phone: [facility] 07-08-2023 09:19-0500 Systolic blood pressure 120 mm[Hg] Sofi Blanco APRN.OIL PROCESS STILLMAN Work Phone: [facility] 06-27-2023 09:18-0400 Body height 170.2 cm Sofi Melton APRN-OIL PROCESS STILLMAN Work Phone: [facility] 06-27-2023 09:18-0400 Body mass index (BMI) [Ratio] 41.97 kg/m2 Sofi Melton APRN-OIL PROCESS STILLMAN Work Phone: [facility] 06-27-2023 09:18-0400 Body weight 121.56 kg Sofi Melton APRN-OIL PROCESS STILLMAN Work Phone: [facility] 06-27-2023 09:18-0400 Diastolic blood pressure 82 mm[Hg] Sofi Melton APRN-OIL PROCESS STILLMAN Work Phone: [facility] 06-27-2023 09:18-0400 Heart rate 82 /min Sofi Melton APRN-OIL PROCESS STILLMAN Work Phone: [facility] 06-27-2023 09:18-0400 SaO2% (BldA) [Mass fraction] 98 % Sofi Melton APRN-OIL PROCESS STILLMAN Work Phone: [facility] 06-27-2023 09:18-0400 Systolic blood pressure 122 mm[Hg] Sofi Melton APRN-OIL PROCESS STILLMAN Work Phone: [facility] 01-03-2023 10:08-0400 Body temperature 98.2 [degF] Abhay Miranda Jr., DPNikhil Work Phone: [facility] 01-03-2023 10:08-0400 Diastolic blood pressure 85 mm[Hg] Abhay Miranda Jr., DPM Work Phone: [facility] 01-03-2023 10:08-0400 Heart rate 80 /min Abhay Miranda Jr., DPM Work Phone: [facility] 01-03-2023 10:08-0400 Systolic blood pressure 146 mm[Hg] Abhay Miranda Jr., DPM Work Phone: [facility] 12-06-2022 11:02-0400 Diastolic blood pressure 88 mm[Hg] Abhay Miranda Jr., DPM Work Phone: [facility] Encounters Encounter Date Encounter Type Care Provider Facility Start: 08-15-2023 End: 08-15-2023 ambulatory [facility] Facility:[facility] Start: 08-15-2023 End: 08-15-2023 ambulatory SOFI MELTON [facility] Start: 08-15-2023 End: 08-15-2023 Office outpatient visit 15 minutes Sofi Melton APRN-OIL PROCESS STILLMAN Work Phone: [facility] Procedures Date Procedure Procedure Detail Performing Clinician Start: 07-03-2023 transvaginal Sofi hidalgo APRN.OIL PROCESS STILLMAN Work Phone: Start: 12-06-2022 Microscopic observat ion [Identifier] in Cervix by Cyto stain Abhay Miranda Jr., DPM Work Phone: Start: 11-29-2022 SKIN PREP Abhay mcbride DPM Work Phone: Start: 11-01-2022 Lipid 1996 panel - S apoorva or Plasma Sofi Melton SENIOR GAMES TECHNICIAN-OIL PROCESS STILLMAN Work Phone: Start: 09-27-2022 NURSING COMMUNICATIO N - DO NOT USE IN ORDER SETS Abhay Miranda DPM Work Phone: Start: 10-25-2021 Microscopic observat ion [Identifier] in Cervix by Cyto stain Abhay Miranda Jr., DPM Work Phone: Cholecystectomy Zachery correia Work Phone: Plan of Treatment Date Care Activity Detail Author Start: 2039 Zoster Vaccines (1 of 2) Zoster Vaccines (1 of 2) [facility] Start: 12-07-2027 HPV Testing HPV Testing [facility] Start: 12-07-2027 Pap Testing Pap Testing [facility] Start: 12-07-2027 Screening for malignant neoplasm of cervix [facility] Start: 11-02-2027 Lipid panel Lipid Panel [facility] Start: 10-25-2026 HPV TESTING HPV TESTING [facility] Start: 10-25-2026 PAP TESTING PAP TESTING [facility] Start: 12-06-2025 Screening for malignant neoplasm of cervix [facility] Start: 10-25-2024 Screening for malignant neoplasm of cervix Pap Smear [facility] Start: 07-02-2024 End: 07-02-2024 Patient encounter procedure 07/02/2024 9:00 AM EST Office Visit [facility] [address] [place] [id number] Sofi Melton, SENIOR GAMES TECHNICIAN-OIL PROCESS STILLMAN [address] [place], [place] [id number] [facility] Start: 06-28-2024 Yearly Adult Physical Yearly Adult Physical [facility] Start: 06-27-2024 End: 06-27-2024 CBC W Auto Differential panel - Blood CBC and Auto Differential Lab Routine Wellness examination Expected: 06/27/2024 (Approximate), Expires: 06/27/2024 [facility] Service Area Work Phone: Payers Date Payer Category Payer Unknown MMO MMO [employer] [id number] 2021-Present [phone] [address] [place] [address] PPO [id number] 2021 Unknown 2021 Unknown [id number] 1989 Unknown [id number] 02 1989 Unknown [id number] [id number] 02 1989 Unknown [id number] [id number] 56 1989 Unknown [id number] 2.16.840.1.863031.3.579.2.3 56 1989 Unknown [id number] 2.16.840.1.670322.3.579.2.3 56 1989 Unknown [id number] [id number] 03 1989 Unknown [id number] 2.16.840.1.885360.3.579.2.9 03 1989 Unknown [id number] 2.16.840.1.472198.3.579.2.9 03 1989 Unknown [id number] 2.16.840.1.735677.3.579.2.9 03 1989 Unknown [id number] 2.16.840.1.216761.3.579.2.9 03 1989 Unknown [id number] 2.16.840.1.683281.3.579.2.9 03 1989 Unknown [id number] 2.16.840.1.730504.3.579.2.9 03 1989 Unknown [id number] 2.16.840.1.524456.3.579.2.9 03 1989 Unknown [id number] 2.16.840.1.376985.3.579.2.9 03 1989 Unknown [id number] 2.16.840.1.303702.3.579.2.1 1989 Unknown [id number] 2.16.840.1.366709.3.579.2.1 244 1989 Unknown [id number] [id number] 244 [facility] [id number] Unknown [id number] Social History Date Type Detail Facility Start: 09-19-2018 End: 03-19-2023 Tobacco smoking status NHIS Never smoked tobacco [facility] Start: 09-19-2018 End: 03-19-2023 Tobacco use and exposure Smokeless tobacco non-user [facility] Start: 11-09-2021 End: 06-07-2022 Alcohol intake Ex-drinker (finding) [facility] Start: 10-15-2019 End: 10-25-2019 History SDOH Alcohol Frequency 1 [facility] Start: 10-15-2019 History SDOH Social Connections Phone 4 [facility] Start: 10-15-2019 End: 10-25-2019 History SDOH Social Connections Membership 2 [facility] Start: 10-15-2019 History SDOH Social Connections Living 3 [facility] Start: 10-15-2019 End: 10-25-2019 History SDOH Physical Activity DPW 5 [facility] Start: 10-15-2019 History SDOH Physica l Activity MPS 9 [facility] Start: 10-15-2019 Education 13 [facility] Start: 1990 Sex Assigned At Female [facility] Start: 10-30-2021 End: 06-27-2023 Exposure to SARS-CoV-2 (event) Not sure [facility] Start: 11-29-2022 End: 06-27-2023 Never smoked tobacco Never smoked tobacco [facility] Work Phone: Start: 09-27-2022 End: 08-15-2023 Alcohol intake Current drinker of alcohol (finding) [facility] Start: 01-20-2022 End: 12-06-2022 Alcohol Comment occasional [facility] Start: 1990 Sex Assigned At Not on file [facility] Start: 11-29-2022 End: 06-27-2023 Tobacco use panel [facility] Start: 06-26-2023 Alcohol Comment Maybe once a w [place] one or two glasses on the weekends [facility] Work Phone: Do you belong to any clubs or organizations such as pentecostalism groups, unions, fraternal or athletic groups, or school groups? No [facility] Work Phone: Are you now , , , , never or living with a partner? [facility] Work Phone: How often to you hav e a drink containing alcohol? Never [facility] Work Phone: Average Number of Drinks Not on file [facility] Work Phone: Do you feel stress - tense, restless, nervous, or anxious, or unable to sleep at night because your mind is troubled all the time - these days [OSQ] To some extent [facility] Work Phone: (I/We) worried wheth er (my/our) food would run out before (I/we) got money to buy more. Never true [facility] Work Phone: Start: 11-07-2021 Gender identity Identifies as female gender (finding) [facility] Start: 11-07-2021 Sexual orientation Heterosexual (fin ding) [facility] Start: 08-05-2023 End: 08-15-2023 Exposure to SARS-CoV-2 (event) Unable to assess [facility] Work Phone: NEGATED: Highlighted rowStart: NINF History of tobacco use Passive smoker [facility] Clinical Notes 11-27-2021 to 08-15-2023 ISIDRA Cole - 08/15/2023 9:40 AM Sofi Rice APRN.CNP - 07/08/2023 9:11 AM Kalee Blankenship RDMS - 07/03/2023 1:45 PM ISIDRA Dorado - 06/27/2023 9:20 AM EDT Note Date & Type Note Facility 08-15-2023 History of Present illness Narrative Subjective Patient ID: Ronaldo Whitten is a 33 y.o. female who presents for Follow-up (1 month med check ). VIRTUAL APPOINTMENT BEING PERFORMED DUE TO COVID-19 (CORONAVIRUS) HPI: Presents today for 1 MONTH MED CHECK. SHE IS DOING WELL ON MED AND DENIES SIDE EFFECTS. NO NEW COMPLAINTS THYROID- FOLLOWS WITH ENDO Visit Vitals OB Status Having periods Smoking Status Never Review of Systems Constitutional: Negative for chills, fatigue, fever and unexpected weight change. HENT: Negative for congestion, ear pain, sore throat and trouble swallowing. Eyes: Negative for photophobia, pain, redness and visual disturbance. Respiratory: Negative for apnea, cough, choking, chest tightness, shortness of breath and wheezing. Cardiovascular: Negative for chest pain, palpitations and leg swelling. Gastrointestinal: Negative for abdominal distention, abdominal pain, blood in stool, constipation, diarrhea, nausea and vomiting. Genitourinary: Negative for difficulty urinating, dysuria, flank pain, frequency, hematuria and urgency. Musculoskeletal: Negative for arthralgias, back pain, gait problem, joint swelling, myalgias and neck pain. Skin: Negative for rash and wound. Neurological: Negative for dizziness, seizures, syncope, facial asymmetry, speech difficulty, weakness, numbness and headaches. Psychiatric/Behavioral: Negative for confusion, sleep disturbance and suicidal ideas. The patient is not nervous/anxious. Objective Physical Exam Neurological: Mental Status: She is alert. Psychiatric: Mood and Affect: Mood normal. Behavior: Behavior normal. Thought Content: Thought content normal. Judgment: Judgment normal. Assessment/Plan Problem List Items Addressed This Visit Class 3 severe obesity due to excess calories with serious comorbidity and body mass index (BMI) of 40.0 to 44.9 in adult ([facility]) - Primary Current moderate episode of major depressive disorder without prior episode ([facility]) Relevant Medications buPROPion XL (Wellbutrin XL) 150 mg 24 hr tablet PLEASE MONITOR CLOSELY FOR ANY UNTOWARD SIDE EFFECTS OR COMPLICATIONS OF MEDICATIONS. PATIENT IS STRONGLY ADVISED TO BE COMPLIANT WITH RECOMMENDATIONS. QUESTIONS AND CONCERNS WERE ADDRESSED. INSTRUCTED TO CALL, RETURN SOONER, OR GO TO THE ER, IF SYMPTOMS PERSIST OR WORSEN. THEY VOICED UNDERSTANDING AND DENIES FURTHER QUESTIONS AT THIS TIME. TIME CODE 1. PREPARATION FOR PATIENT'S VISIT (REVIEWING CHART, CURRENT MEDICAL RECORDS, OUTSIDE HEALTH PROVIDER RECORDS, PREVIOUS HISTORY, EXAM, TEST, PROCEDURE, AND MEDICATIONS) 2. FACE TO FACE ENCOUNTER OBTAINING HISTORY FROM THE PATIENT/FAMILY/CAREGIVERS; PERFORMING EVALUATION AND EXAMINATION; ORDERING TESTS OR PROCEDURES; REFERRING AND COMMUNICATING WITH OTHER HEALTHCARE PROVIDERS; COUNSELING AND EDUCATION OF THE PATIENT/FAMILY/CAREGIVERS; INDEPENDENTLY INTERPRETING RESULTS (TESTS, LABS, PROCEDURES, IMAGING) AND COMMUNICATING AND EXPLAINING RESULTS TO THE PATIENT/FAMILY/CAREGIVERS 3. COORDINATION OF CARE; PREPARING AND PRINTING DISCHARGE INSTRUCTIONS AND ANY EDUCATIONAL MATERIAL FOR THE PATIENT/FAMILY/CAREGIVERS. DOCUMENTING CLINICAL INFORMATION IN THE ELECTRONIC MEDICAL RECORD 4. REVIEWING OARRS NEEDED MDM 1) COMPLEXITY: 1 ACUTE ILLNESS, 1 STABLE CHRONIC CONDITION, OR 2 MINOR PROBLEMS ADDRESSED 2)DATA: TESTS INTERPRETED AND OR ORDERED, TOOK INDEPENDENT HISTORY OR RECORDS REVIEWED 3)RISK: LOW RISK DUE TO NATURE OF MEDICAL CONDITIONS/COMORBIDITY OR MEDICATIONS ORDERED OR SURGICAL OR PROCEDURE REFERRAL Follow up as before documented in this encounter [facility] Work Phone: 07-08-2023 Note HNO ID: [id number] Author: Sofi Blanco APRN.ALEKSANDAR Service: ? Author Type: Nurse Practitioner Type: Progress Notes Filed: 07/08/2023 10:19 AM Note Text: Ronaldo Whitten is a 33 year old female who presents for problem visit discuss diagnostic testing results. HPI: Diagnostic testing due to menses every 14-17 days. S/p tubal sterilization. No YAMEL, no problems with anesthesia 07/03/2023 Endometrium, biopsy: - Segments of endometrial polyp, proliferative non-polyp endometrium and benign endocervical tissue. 07/03/2023 Pelvic US Limitations: Body habitus and bowel gas. Uterus: -Size: 9.4 x 4.5 x 5.3 cm -Orientation: Anteverted -Endometrial echo complex: Evaluation of the endometrium was adequate. No endometrial abnormality. The endometrial echo complex measured 0.7 cm. -Cervix: Nabothian cysts are visualized. -Adenomyosis assessment: There are no sonographic findings of adenomyosis. -Fibroids: There are no fibroids. Right Ovary: 2.1 x 2.7 x 2.5 cm -Normal sonographic appearance. Left Ovary: 2.8 x 1.8 x 2.1 cm -Normal sonographic appearance. Free Fluid: No abnormal free fluid is present. 12/06/2022 Pap normal with negative HPV OB History T2 L2 SAB0 IAB0 Ectopic0 Multiple0 Live Births0 Ultrasonic Tester History LMP: 06/22/2023 (Approximate), Having periods Age at Menarche: Age at First : Age at Menopause: Ultrasonic Tester History Comments: Sexual Activity: Yes; Male; Essure Contraception: Tubal Ligation PAST MEDICAL HISTORY Diagnosis Date Hypothyroidism PAST SURGICAL HISTORY Procedure Laterality Date CHOLECYSTECTOMY HX ESSURE Bilateral 2016 Dr Piedad LOCKHART PROCEDURE (W NOTE) 05/23/2022 SALPINGECTOMY Bilateral 05/23/2022 removal of Essure device FAMILY HISTORY Problem Relation Age of Onset Thyroid Mother hypothyroid Colon Cancer Mother 72 colon, liver Liver Cancer Mother Brain Cancer Father 75 Thyroid Sister Thyroid Sister No Known Problems Sister No Known Problems Sister Diabetes Brother No Known Problems Brother No Known Problems Brother Thyroid Paternal Grandmother Social History Tobacco Use Smoking status: Never Smokeless tobacco: Never Vaping Use Vaping Use: Never used Substance Use Topics Alcohol use: Yes Comment: occasional Drug use: Never Current Outpatient Medications Medication Sig buPROPion XL (WELLBUTRIN XL) 150 mg 24 hr tablet levothyroxine (SYNTHROID) 112 mcg tablet Take 175 mcg by mouth once daily. Take on empty stomach. For thyroid fexofenadine ER (HOLLY ALLERGY) 180 mg tablet Take 1 tablet by mouth once daily. multivit with calcium,iron,min (WOMEN'S MULTIPLE VITAMINS ORAL) Take 1 tablet by mouth once daily. Gummie No current facility-administered medications for this visit. Allergies As of Date: 07/08/2023 (No Known Allergies) Fully Assessed 07/03/2023 REVIEW OF SYSTEMS Allergies and current medication updated:Yes EXAM: BP 120/86 Wt 276 lb (125.2kg) LMP 06/22/2023 GENERAL: pleasant, female in no apparent distress CHEST: Normal inspiratory effort NEURO: alert and oriented x3,exam grossly non-focal ASSESSMENT/PLAN: 1. Abnormal uterine bleeding due to endometrial polyp - ICD9: 626.6, 621.0, ICD10: N93.9, N84.0 - discussed findings - endometrial polyp on EMB. Pelvic US normal. Discussed recommended hysteroscopy, JUWAN with endometrial polypectomy with Mirena/Liletta IUD. She does not think she is interested in IUD but will consider due to DUB and BMI 43 that increases her risk of estrogen related cancers. All questions answered. - Surgery scheduling worksheet completed and given to surgery scheduling. She will be contacted by our office. Follow-up as needed. Sofi Blanco APRN.ALEKSANDAR I spent a total of 25 minutes on the date of the service which included preparing to see the patient, [id number] patient care, completing clinical documentation, obtaining and/or reviewing separately obtained history, performing a medically appropriate examination, counseling and educating the patient/family/caregiver, and ordering medications, tests, or procedures. [facility] 07-08-2023 History of Present illness Narrative Ronaldo Whitten is a 33 year old female who presents for problem visit discuss diagnostic testing results. HPI: Diagnostic testing due to menses every 14-17 days. S/p tubal sterilization. No YAMEL, no problems with anesthesia 07/03/2023 Endometrium, biopsy: - Segments of endometrial polyp, proliferative non-polyp endometrium and benign endocervical tissue. 07/03/2023 Pelvic US Limitations: Body habitus and bowel gas. Uterus: -Size: 9.4 x 4.5 x 5.3 cm -Orientation: Anteverted -Endometrial echo complex: Evaluation of the endometrium was adequate. No endometrial abnormality. The endometrial echo complex measured 0.7 cm. -Cervix: Nabothian cysts are visualized. -Adenomyosis assessment: There are no sonographic findings of adenomyosis. -Fibroids: There are no fibroids. Right Ovary: 2.1 x 2.7 x 2.5 cm -Normal sonographic appearance. Left Ovary: 2.8 x 1.8 x 2.1 cm -Normal sonographic appearance. Free Fluid: No abnormal free fluid is present. 12/06/2022 Pap normal with negative HPV OB History T2 L2 SAB0 IAB0 Ectopic0 Multiple0 Live Births0 Ultrasonic Tester History LMP: 06/22/2023 (Approximate), Having periods Age at Menarche: Age at First : Age at Menopause: Ultrasonic Tester History Comments: Sexual Activity: Yes; Male; Essure Contraception: Tubal Ligation PAST MEDICAL HISTORY Diagnosis Date Hypothyroidism PAST SURGICAL HISTORY Procedure Laterality Date CHOLECYSTECTOMY HX ESSURE Bilateral 2016 Dr Piedad LOCKHART PROCEDURE (W NOTE) 05/23/2022 SALPINGECTOMY Bilateral 05/23/2022 removal of Essure device FAMILY HISTORY Problem Relation Age of Onset Thyroid Mother hypothyroid Colon Cancer Mother 72 colon, liver Liver Cancer Mother Brain Cancer Father 75 Thyroid Sister Thyroid Sister No Known Problems Sister No Known Problems Sister Diabetes Brother No Known Problems Brother No Known Problems Brother Thyroid Paternal Grandmother Social History Tobacco Use Smoking status: Never Smokeless tobacco: Never Vaping Use Vaping Use: Never used Substance Use Topics Alcohol use: Yes Comment: occasional Drug use: Never Current Outpatient Medications Medication Sig buPROPion XL (WELLBUTRIN XL) 150 mg 24 hr tablet levothyroxine (SYNTHROID) 112 mcg tablet Take 175 mcg by mouth once daily. Take on empty stomach. For thyroid fexofenadine ER (HOLLY ALLERGY) 180 mg tablet Take 1 tablet by mouth once daily. multivit with calcium,iron,min (WOMEN'S MULTIPLE VITAMINS ORAL) Take 1 tablet by mouth once daily. Gummie No current facility-administered medications for this visit. Allergies As of Date: 07/08/2023 (No Known Allergies) Fully Assessed 07/03/2023 REVIEW OF SYSTEMS Allergies and current medication updated:Yes EXAM: BP 120/86 Wt 276 lb (125.2kg) LMP 06/22/2023 GENERAL: pleasant, female in no apparent distress CHEST: Normal inspiratory effort NEURO: alert and oriented x3,exam grossly non-focal ASSESSMENT/PLAN: 1. Abnormal uterine bleeding due to endometrial polyp - ICD9: 626.6, 621.0, ICD10: N93.9, N84.0 - discussed findings - endometrial polyp on EMB. Pelvic US normal. Discussed recommended hysteroscopy, D&C with endometrial polypectomy with Mirena/Liletta IUD. She does not think she is interested in IUD but will consider due to DUB and BMI 43 that increases her risk of estrogen related cancers. All questions answered. - Surgery scheduling worksheet completed and given to surgery scheduling. She will be contacted by our office. Follow-up as needed. Sofi Blanco APRN.CNP I spent a total of 25 minutes on the date of the service which included preparing to see the patient, [id number] patient care, completing clinical documentation, obtaining and/or reviewing separately obtained history, performing a medically appropriate examination, counseling and educating the patient/family/caregiver, and ordering medications, tests, or procedures. documented in this encounter [facility] 07-03-2023 Note HNO ID: [id number] Author: Kalee Zuleta RDMS Service: ? Author Type: Block Sawyer Type: Progress Notes Filed: 07/03/2023 3:42 PM Note Text: Radiology Service Progress Note PATIENT NAME: Ronaldo Whitten DATE OF SERVICE: July 03, 2023 TIME: 3:42 PM PATIENT IDENTITY VERIFICATION COMPLETED USING TWO (2) IDENTIFIERS: Name and Date of confirmed by patient verbally. FALL SCREENING: Has the patient had 2 falls in the last year or 1 fall with injury or currently using an Ambulatory Assistive Device (Walker, Cane, Wheelchair, Crutches, etc.)? No PATIENT GENDER DATA: Female. status: : No status: NO. PATIENT RELEVANT IMPLANT DATA REVIEWED: Not Applicable RADIOLOGY DEPARTMENT: Ultrasound PERIPHERAL IV DATA: Not applicable SIGNED BY: Kalee Zuleta RDMS RVT July 03, 2023 3:42 PM [facility] 07-03-2023 History of Present illness Narrative Radiology Service Progress Note PATIENT NAME: Ronaldo Whitten DATE OF SERVICE: July 03, 2023 TIME: 3:42 PM PATIENT IDENTITY VERIFICATION COMPLETED USING TWO (2) IDENTIFIERS: Name and Date of confirmed by patient verbally. FALL SCREENING: Has the patient had 2 falls in the last year or 1 fall with injury or currently using an Ambulatory Assistive Device (Walker, Cane, Wheelchair, Crutches, etc.)? No PATIENT GENDER DATA: Female. status: : No status: NO. PATIENT RELEVANT IMPLANT DATA REVIEWED: Not Applicable RADIOLOGY DEPARTMENT: Ultrasound PERIPHERAL IV DATA: Not applicable SIGNED BY: Kalee Zuleta RDMS RVT July 03, 2023 3:42 PM documented in this encounter [facility] 07-03-2023 Note HNO ID: [id number] Author: Sofi Blanco APRN.ALEKSANDAR Service: ? Author Type: Nurse Practitioner Type: Progress Notes Filed: 07/03/2023 5:25 PM Note Text: Field Operations Technician offered: Patient declines. Ronaldo Whitten is a 33 year old female who presents for problem visit abnormal menses. HPI: Vaginal spotting between menses in October 2022. Now having actual menses every 14-17 days lasting 6-7 days. Bleeding often starts with spotting after intercourse and then transitions into menses. Recently diagnosed with depression and started on bupropion XL150 mg . Normal pelvic US 11/13/2021 12/06/2022 Pap normal with negative HPV. LEEP 2021 [facility] Contraception tubal sterilization 10/23/2022 TSH 0.87 - levothyroxine T4 Free 1.53 Vit D 16.7 - taking daily supplement OB History T2 L2 SAB0 IAB0 Ectopic0 Multiple0 Live Births0 Ultrasonic Tester History LMP: 06/22/2023 (Approximate), Having periods Age at Menarche: Age at First : Age at Menopause: Ultrasonic Tester History Comments: Sexual Activity: Yes; Male; Essure Contraception: Tubal Ligation PAST MEDICAL HISTORY Diagnosis Date Hypothyroidism PAST SURGICAL HISTORY Procedure Laterality Date CHOLECYSTECTOMY HX ESSURE Bilateral 2016 Dr Herbert LEEYosef PROCEDURE (W NOTE) 05/23/2022 SALPINGECTOMY Bilateral 05/23/2022 removal of Essure device FAMILY HISTORY Problem Relation Age of Onset Thyroid Mother hypothyroid Colon Cancer Mother 72 colon, liver Liver Cancer Mother Brain Cancer Father 75 Thyroid Sister Thyroid Sister No Known Problems Sister No Known Problems Sister Diabetes Brother No Known Problems Brother No Known Problems Brother Thyroid Paternal Grandmother Social History Tobacco Use Smoking status: Never Smokeless tobacco: Never Vaping Use Vaping Use: Never used Substance Use Topics Alcohol use: Yes Comment: occasional Drug use: Never Current Outpatient Medications Medication Sig buPROPion XL (WELLBUTRIN XL) 150 mg 24 hr tablet levothyroxine (SYNTHROID) 112 mcg tablet Take 175 mcg by mouth once daily. Take on empty stomach. For thyroid fexofenadine ER (HOLLY ALLERGY) 180 mg tablet Take 1 tablet by mouth once daily. multivit with calcium,iron,min (WOMEN'S MULTIPLE VITAMINS ORAL) Take 1 tablet by mouth once daily. Gummie No current facility-administered medications for this visit. Allergies As of Date: 07/03/2023 (No Known Allergies) Fully Assessed 07/03/2023 REVIEW OF SYSTEMS Abdomen: No bloating, early satiety, indigestion, or increased flatulence. No abdominal pain, nausea, vomiting, diarrhea, or constipation. Allergies and current medication updated:Yes EXAM: BP 132/88 Wt 278 lb (126.1kg) LMP 06/22/2023 GENERAL: pleasant, female in no apparent distress CHEST: Normal inspiratory effort ABDOMEN: soft and non-tender PELVIC: external genitalia normal, normal Bartholin's glands, urethra, Waterview's glands, no vulvar lesions, no cervical lesions, physiologic discharge present, normal appearing perineal body and perianal region BIMANUAL: uterus normal size, shape and consistency, no adnexal masses, and non-tender NEURO: alert and oriented x3,exam grossly non-focal ASSESSMENT/PLAN: 1. DUB (dysfunctional uterine bleeding) - ICD9: 626.8, ICD10: N93.8 - US FEMALE PELVIS TRANSVAG - ENDOMETRIAL BIOPSY - done today - SURGICAL PATHOLOGY - PELVIC US [facility] Will schedule visit to discuss results and develop POC. Sofi Blanco APRN.ALEKSANDAR Ybarra is a 33 year old Female who presents today for an endometrial biopsy for abnormal uterine bleeding. test: n/a, prior tubal UNIVERSAL PROTOCOL / SAFETY CHECKLIST Procedure to be Performed: Endometrial Biopsy Sign In: A Moment of CARE was completed. Personnel directly involved with the procedure wore the appropriate PPE (Personal Protective Equipment). Patient/Surrogate Stated/Verified: PATIENT VERIFIED(optional for EMERGENT procedures): Patient name, Date of , Relevant allergies, and The intended procedure Time Out Communication: Intended patient and procedure match the source documents. Consent documented and matches the intended procedure. Sign Out: SIGN OUT (optional for EMERGENT procedures): All instruments, equipment, possible retained foreign bodies accounted for. Post-procedure follow-up management communicated and Plan of Care Visit completed when applicable. PROCEDURE: EXTERNAL GENITALIA: Normal in appearance without lesions VAGINA: Normal in appearance without lesions BIOPSY: Speculum placed into the vagina with excellent visualization of the cervix. Cervix cleaned with betadine. Anterior lip of cervix grasped with single toothed tenaculum. Uterus sounded to 9 cm. Pipelle inserted into the uterus without difficulty and endometrial biopsy obtained. Specimen labeled and sent to pathology. Hemostasis achieved. Procedure Summary: Patient tolerated procedure well. ASSESSMENT: abnormal (more content not included)... [facility] 06-27-2023 History of Present illness Narrative Subjective Patient ID: Ronaldo Whitten is a 33 y.o. female who presents for Annual Exam (NO CONCERNS). HPI: Presents today for 12 MONTH WELLNESS. NO NEW COMPLAINTS DEPRESSION SCREEN POSITIVE TODAY. SHE IS SEEING A COUNSELOR VIA TELE APPTS X 6 MONTHS. SHE STATES THE DEPRESSION/ANGER IS SITUATIONAL. START WELLBUTRIN Visit Vitals BP 122/82 (BP Location: Left arm, Patient Position: Sitting) Pulse 82 Ht 1.702 m (5' 7 ) Wt 122 kg (268 lb) LMP (LMP Unknown) SpO2 98% BMI 41.97 kg/m OB Status Having periods Smoking Status Never BSA 2.4 m Review of Systems Constitutional: Negative for chills, fatigue, fever and unexpected weight change. HENT: Negative for congestion, ear pain, sore throat and trouble swallowing. Eyes: Negative for photophobia, pain, redness and visual disturbance. Respiratory: Negative for apnea, cough, choking, chest tightness, shortness of breath and wheezing. Cardiovascular: Negative for chest pain, palpitations and leg swelling. Gastrointestinal: Negative for abdominal distention, abdominal pain, blood in stool, constipation, diarrhea, nausea and vomiting. Genitourinary: Negative for difficulty urinating, dysuria, flank pain, frequency, hematuria and urgency. Musculoskeletal: Negative for arthralgias, back pain, gait problem, joint swelling, myalgias and neck pain. Skin: Negative for rash and wound. Neurological: Negative for dizziness, seizures, syncope, facial asymmetry, speech difficulty, weakness, numbness and headaches. Psychiatric/Behavioral: Negative for confusion, sleep disturbance and suicidal ideas. The patient is not nervous/anxious. Objective THYROID- FOLLOWS WITH ENDO DR. MARI GONZALEZ IN [place]AW[place] VIT D- DR. GONZALEZ ADDRESSES ALLERGIES- START PRN LORATADINE AND FLONASE Physical Exam Constitutional: Appearance: Normal appearance. She is normal weight. HENT: Head: Normocephalic. Eyes: Extraocular Movements: Extraocular movements intact. Conjunctiva/sclera: Conjunctivae normal. Pupils: Pupils are equal, round, and reactive to light. Cardiovascular: Rate and Rhythm: Normal rate and regular rhythm. Pulses: Normal pulses. Heart sounds: Normal heart sounds. Pulmonary: Effort: Pulmonary effort is normal. Breath sounds: Normal breath sounds. Musculoskeletal: General: Normal range of motion. Cervical back: Normal range of motion. Skin: General: Skin is warm and dry. Neurological: General: No focal deficit present. Mental Status: She is alert and oriented to person, place, and time. Psychiatric: Mood and Affect: Mood normal. Behavior: Behavior normal. Thought Content: Thought content normal. Judgment: Judgment normal. Assessment/Plan Problem List Items Addressed This Visit Wellness examination - Primary PLEASE MONITOR CLOSELY FOR ANY UNTOWARD SIDE EFFECTS OR COMPLICATIONS OF MEDICATIONS. PATIENT IS STRONGLY ADVISED TO BE COMPLIANT WITH RECOMMENDATIONS. QUESTIONS AND CONCERNS WERE ADDRESSED. INSTRUCTED TO CALL, RETURN SOONER, OR GO TO THE ER, IF SYMPTOMS PERSIST OR WORSEN. THEY VOICED UNDERSTANDING AND DENIES FURTHER QUESTIONS AT THIS TIME. TIME CODE 1. PREPARATION FOR PATIENT'S VISIT (REVIEWING CHART, CURRENT MEDICAL RECORDS, OUTSIDE HEALTH PROVIDER RECORDS, PREVIOUS HISTORY, EXAM, TEST, PROCEDURE, AND MEDICATIONS) 2. FACE TO FACE ENCOUNTER OBTAINING HISTORY FROM THE PATIENT/FAMILY/CAREGIVERS; PERFORMING EVALUATION AND EXAMINATION; ORDERING TESTS OR PROCEDURES; REFERRING AND COMMUNICATING WITH OTHER HEALTHCARE PROVIDERS; COUNSELING AND EDUCATION OF THE PATIENT/FAMILY/CAREGIVERS; INDEPENDENTLY INTERPRETING RESULTS (TESTS, LABS, PROCEDURES, IMAGING) AND COMMUNICATING AND EXPLAINING RESULTS TO THE PATIENT/FAMILY/CAREGIVERS 3. COORDINATION OF CARE; PREPARING AND PRINTING DISCHARGE INSTRUCTIONS AND ANY EDUCATIONAL MATERIAL FOR THE PATIENT/FAMILY/CAREGIVERS. DOCUMENTING CLINICAL INFORMATION IN THE ELECTRONIC MEDICAL RECORD 4. REVIEWING OARRS NEEDED MDM 1) COMPLEXITY: 1 ACUTE ILLNESS, 1 STABLE CHRONIC CONDITION, OR 2 MINOR PROBLEMS ADDRESSED 2)DATA: TESTS INTERPRETED AND OR ORDERED, TOOK INDEPENDENT HISTORY OR RECORDS REVIEWED 3)RISK: LOW RISK DUE TO NATURE OF MEDICAL CONDITIONS/COMORBIDITY OR MEDICATIONS ORDERED OR SURGICAL OR PROCEDURE REFERRAL 12 MONTHS WITH LABS -WELLNESS 1 MONTH MED CHECK documented in this encounter [facility] Work Phone: 01-03-2023 History of Present illness Narrative Status post right foot curettage and hyfrecation. Patient is a pleasant 32-year-old male following up today for right foot wart surgery. States that he is feeling really well. No pain, no recurrence. Physical Vascular: DP PT pulses are palpable 2 out of 4. CFT is fair no edema. Derm: The base of the warts is now gone and fully resolved with return of skin lines. No bleeding, or erythema, no signs of infection. Neuro: Intact. Can easily wiggle toes. Assessment and plan patient is a pleasant 32 yo female with right foot painful verrucous lesion status post hyfrecation and curettage. -At this point she is fully healed and this is resolved. Can discontinue bandages or Band-Aids and follow-up as needed for this or any new issues. documented in this encounter [facility] 12-06-2022 History of Present illness Narrative Status post right foot curettage and hyfrecation. Patient is a pleasant 32-year-old male following up today for right foot wart surgery. States that he is feeling really well using topical Silvadene without issues. Feels much better. Physical Vascular: DP PT pulses are palpable 2 out of 4. CFT is fair no edema. Derm: The base of the wound sites are granular there isno streaking no lymphangitis no undermining fluctuance or crepitation. Neuro: Intact. Can easily wiggle toes. Assessment and plan patient is a pleasant 32 yo female with right foot painful verrucous lesion status post hyfrecation and curettage. Doing excellent at this point can continue to let this air dry at nighttime and apply Silvadene during the day for the next 3 to 4 weeks follow-up in 3 to 4 weeks to reevaluate for long-term follow-up. documented in this encounter [facility] 12-06-2022 Note HNO ID: [id number] Author: Sofi Blanco APRN.ALEKSANDAR Service: ? Author Type: Nurse Practitioner Type: Progress Notes Filed: 12/06/2022 7:19 PM Note Text: Field Operations Technician offered: Patient declines. Ronaldo is a 32 year old who presents for an annual gynecologic exam without complaints. Menses: cycles every 30 days and 5 days of flow. Has had odd bleeding over the past 3 weeks - some old blood spotting and sometimes red - this is first episode. Contraception: 2022 tubal sterilization, Essure removed - has no pain with menses. HPV vaccine: No Last Pap: 2021 ASCUS HPV: 2021 HRHPV positive History of abnormal pap: Yes, 2019 colposcopy benign: 2020 [place] [facility]IL 2021 LEEP benign pathology Last mammogram: never Sexually active: Yes Patient concerns for STD exposure: No. Time with current partner: 17 years Pain with intercourse: No Postcoital bleeding: No Documentation from previous visit of 10/25/2021 was copied and pasted, documentation has been reviewed and edited as necessary for today's visit. OB History T2 L2 SAB0 IAB0 Ectopic0 Multiple0 Live Births0 Ultrasonic Tester History LMP: 06/07/2022 (Approximate), Having periods Age at Menarche: Age at First : Age at Menopause: Ultrasonic Tester History Comments: Sexual Activity: Yes; Male; Essure Contraception: Implant PAST MEDICAL HISTORY Diagnosis Date Hypothyroidism PAST SURGICAL HISTORY Procedure Laterality Date CHOLECYSTECTOMY HX ESSURE Bilateral 2016 Dr Herbert LEEP PROCEDURE (W NOTE) 05/23/2022 SALPINGECTOMY Bilateral 05/23/2022 removal of Essure device FAMILY HISTORY Problem Relation Age of Onset Thyroid Mother hypothyroid Colon Cancer Mother 72 colon, liver Liver Cancer Mother Brain Cancer Father 75 Thyroid Sister Thyroid Sister Thyroid Paternal Grandmother SOCIAL HISTORY Social History Tobacco Use Smoking status: Never Smokeless tobacco: Never Vaping Use Vaping Use: Never used Substance Use Topics Alcohol use: Not Currently Drug use: Never REVIEW OF SYSTEMS Abdomen: No abdominal pain, nausea, vomiting, diarrhea, or constipation. No bloating, early satiety, indigestion, or increased flatulence. Bladder: No dysuria, gross hematuria, urinary frequency, urinary urgency, or incontinence. Breast: No breast lumps, nipple d/c, overlying skin changes, redness or skin retraction. Allergies and current medication updated:Yes EXAM: BP 116/82 Ht 5' 6.5 (1.69m) Wt 274 lb (124.3kg) LMP 11/18/2022 BMI 43.57 kg/(m2). Weight gain of 18 lbs in past year. GENERAL: pleasant, female in no apparent distress HEENT: Normocephalic, atraumatic, mucus membranes moist, and no lesions NECK: Supple, full range of motion, no adenopathy, and thyroid normal DERMATOLOGY: Normal, without lesions, non-icteric, and non-hirsute BREAST: soft, non-tender, symmetric, no dominant mass, normal nipple-areolar complex, no lymphadenopathy, and no nipple discharge CHEST: Normal inspiratory effort ABDOMEN: soft, non-tender, and no masses PELVIC: external genitalia normal, normal Bartholin's glands, urethra, Waterview's glands, no vulvar lesions, no cervical lesions, good vaginal support, physiologic discharge present, normal appearing perineal body and perianal region BIMANUAL: uterus normal size, shape and consistency, no adnexal masses, and non-tender RECTOVAGINAL: deferred. NEURO: alert and oriented x3,exam grossly non-focal EXTREMITIES: normal ASSESSMENT/PLAN: 1) Health maintenance: Pap done with HPV. Mammogram starting age 40. Nutrition, exercise and routine health maintenance exams reviewed. HPV vaccine: interested, literature given 2. Class 3 severe obesity with body mass index (BMI) of 40.0 to 44.9 in adult, unspecified obesity type, unspecified whether serious comorbidity present (HCC) - ICD9: 278.01, V85.41, ICD10: E66.01, Z68.41 -Weight increasing -Discussed medical weight management and/or evaluation for metabolic surgery. She is very interested in weight loss, and plans to discuss options with her . Given questionnaire to complete if desired. - [facility] 3) Contraception: tubal sterilization. Contraceptive options reviewed and information provided. 4) STD screening: Declined STD check. 5) Follow up one year or sooner as needed Sofi Blanco APRN.[facility] 12-06-2022 History of Present illness Narrative Field Operations Technician offered: Patient declines. Ronaldo is a 32 year old who presents for an annual gynecologic exam without complaints. Menses: cycles every 30 days and 5 days of flow. Has had odd bleeding over the past 3 weeks - some old blood spotting and sometimes red - this is first episode. Contraception: 2021 tubal sterilization, Essure removed - has no pain with menses. HPV vaccine: No Last Pap: 2021 ASCUS HPV: 2021 HRHPV positive History of abnormal pap: Yes, 2019 colposcopy benign: 2020 [place] LSIL 2021 LEEP benign pathology Last mammogram: never Sexually active: Yes Patient concerns for STD exposure: No. Time with current partner: 17 years Pain with intercourse: No Postcoital bleeding: No Documentation from previous visit of 10/25/2021 was copied and pasted, documentation has been reviewed and edited as necessary for today's visit. OB History T2 L2 SAB0 IAB0 Ectopic0 Multiple0 Live Births0 Ultrasonic Tester History LMP: 06/07/2022 (Approximate), Having periods Age at Menarche: Age at First : Age at Menopause: Ultrasonic Tester History Comments: Sexual Activity: Yes; Male; Essure Contraception: Implant PAST MEDICAL HISTORY Diagnosis Date Hypothyroidism PAST SURGICAL HISTORY Procedure Laterality Date CHOLECYSTECTOMY HX ESSURE Bilateral 2016 Dr Piedad LOCKHART PROCEDURE (W NOTE) 05/23/2022 SALPINGECTOMY Bilateral 05/23/2022 removal of Essure device FAMILY HISTORY Problem Relation Age of Onset Thyroid Mother hypothyroid Colon Cancer Mother 72 colon, liver Liver Cancer Mother Brain Cancer Father 75 Thyroid Sister Thyroid Sister Thyroid Paternal Grandmother SOCIAL HISTORY Social History Tobacco Use Smoking status: Never Smokeless tobacco: Never Vaping Use Vaping Use: Never used Substance Use Topics Alcohol use: Not Currently Drug use: Never REVIEW OF SYSTEMS Abdomen: No abdominal pain, nausea, vomiting, diarrhea, or constipation. No bloating, early satiety, indigestion, or increased flatulence. Bladder: No dysuria, gross hematuria, urinary frequency, urinary urgency, or incontinence. Breast: No breast lumps, nipple d/c, overlying skin changes, redness or skin retraction. Allergies and current medication updated:Yes EXAM: BP 116/82 Ht 5' 6.5 (1.69m) Wt 274 lb (124.3kg) LMP 11/18/2022 BMI 43.57 kg/(m^2). Weight gain of 18 lbs in past year. GENERAL: pleasant, female in no apparent distress HEENT: Normocephalic, atraumatic, mucus membranes moist, and no lesions NECK: Supple, full range of motion, no adenopathy, and thyroid normal DERMATOLOGY: Normal, without lesions, non-icteric, and non-hirsute BREAST: soft, non-tender, symmetric, no dominant mass, normal nipple-areolar complex, no lymphadenopathy, and no nipple discharge CHEST: Normal inspiratory effort ABDOMEN: soft, non-tender, and no masses PELVIC: external genitalia normal, normal Bartholin's glands, urethra, Waterview's glands, no vulvar lesions, no cervical lesions, good vaginal support, physiologic discharge present, normal appearing perineal body and perianal region BIMANUAL: uterus normal size, shape and consistency, no adnexal masses, and non-tender RECTOVAGINAL: deferred. NEURO: alert and oriented x3,exam grossly non-focal EXTREMITIES: normal ASSESSMENT/PLAN: 1) Health maintenance: Pap done with HPV. Mammogram starting age 40. Nutrition, exercise and routine health maintenance exams reviewed. HPV vaccine: interested, literature given 2. Class 3 severe obesity with body mass index (BMI) of 40.0 to 44.9 in adult, unspecified obesity type, unspecified whether serious comorbidity present (HCC) - ICD9: 278.01, V85.41, ICD10: E66.01, Z68.41 -Weight increasing -Discussed medical weight management and/or evaluation for metabolic surgery. She is very interested in weight loss, and plans to discuss options with her . Given questionnaire to complete if desired. - [facility] 3) Contraception: tubal sterilization. Contraceptive options reviewed and information provided. 4) STD screening: Declined STD check. 5) Follow up one year or sooner as needed Sofi Blanco APRN.OIL PROCESS STILLMAN documented in this encounter [facility] 11-29-2022 History of Present illness Narrative Chronic painful right foot wart. Patient presents today for right foot removal hyfrecation curettage. Primary risks include continued pain recurrence tingling burning scarring and factor despite this risk, she does wish to proceed. No guarantees are implied or made consent was signed on the EMR. Procedure the patient was prepped and draped in a sterile fashion. Foot was blocked with 3 cc of 2% plain and 3 cc of lidocaine 1: 100,000 of epinephrine for hemostasis. Attention was directed first to the plantar first MPJ the. The site was curettaged and resected free with 15 blade. This was passed off the field sent to pathology for gross evaluation in formalin. Next the base was hyfrecated apparently. Attention was directed to the subsecond MPJ site. This was scored and excised appropriately full-thickness to basement membrane as well as the medial with 15 blade. Next curettage. Passed off the surgical field sent to pathology for gross evaluation. Additionally the base was then resected and cut with a high-grade or. Postop bandage applied with Betadine bath 4 x 4 Kerlix Coban and a surgical shoe follow-up in 1 to 2 weeks to reevaluate. Silvadene and tylenol for pain documented in this encounter [facility] 11-29-2022 Instructions Gini Mcgarry TECHNOLOGIST - 11/29/2022 10:05 AM EDT WART SURGERY POST- OP INSTRUCTIONS: Some bleeding through the day is normal. Limit activity the day of the procedure. The surgical area will be sore for a few days after the procedure. If you experience any discomfort, take Aspirin or Tylenol as directed by the bottle. The morning after the procedure, remove the dressing/ bandage. If the dressing/ bandage sticks to the procedure area, soak the area in warm water. Do not pull the bandage off. Clean the area with Hydrogen Peroxide. Blot dry with a clean cloth. Apply betadine solution or antibiotic ointment and cover with a Band-Aid. Change the Band-Aid and ointment dialy until your follow-up appointment. Stay out of contaminated or unclean water (such as ponds, lange, lakes, hot-tubs, pools, etc.) Please call our office with concerns. documented in this encounter [facility] 11-15-2022 History of Present illness Narrative Right foot wart. Patient is a pleasant 32-year-old female who follows up today for painful plantar right foot wart. States the acid is doing so-so but she is really not seeing the results that she hoped. States it still present still sore and still painful. She is additionally getting fatigued by having to come in every 2 weeks having medicine applied. Physical Vascular: DP PT pulses are easily palpable 2-4. CFT is fair no edema. Derm: Subsecond met and plantar first met are with 2 lesions each at 5 to 5 mm painful with compression palpation. Pinpoint bleeding present. Neuro: Intact. Musculoskeletal muscle strength is 5 out of 5 with fair tone. Can easily wiggle toes and clicking catching. Ankle subtalar midtarsal is full and pain-free. Assessment and plan Patient is a pleasant 32-year-old female with painful right forefoot verrucous lesions. -At this time she has attempted topical cantharidin 3 times with some improvement but no duration. At this time we will convert to topical hyfrecation and curettage. Can set this up in the next 1 to 2 weeks. Follow-up then. documented in this encounter [facility] 11-01-2022 History of Present illness Narrative Plantar warts, fascial pain -Patient is a pleasant 32-year-old female following up today with right plantar foot warts, states that the acid did burn well but she found a new wart to her heel and still believes that the warts that there are present painful and sore though improving. Physical Vascular: DP PT pulses are easily 2-4. CFT is normal no edema. Derm: Right plantar foot is still with some first MPJ and third MPJ as well as lateral fifth MPJ and heel interruption in skin lines subtle pinpoint bleeding with debridement and pain with compression and direct palpation. Nodules otherwise. Neuro: Intact. Musculoskeletal: Still with myofascial pain otherwise improved. No pain to the Achilles pushoff is intact. Assessment and plan: Patient is a pleasant 32-year-old female with improved Achilles tendonitis, still recalcitrant plantars fasciitis and painful foot plantar warts. Lastly does require repeat topical cantharidin application. To continue to lift and heal her plantar wart. Procedure: After timeout was performed, and alcohol prep, did lift the lesion with pinpoint bleeding hemostasis was achieved with tamponade. Next applied cantharidin under occlusion and a postop shoe was applied. Remove this tomorrow wash well and applied Band-Aid. Follow-up in 2 weeks to reevaluate plantarly documented in this encounter [facility] 10-11-2022 History of Present illness Narrative Plantar warts, fascial pain -Patient is a pleasant 32-year-old female following up today on her Achilles pain Achilles tendinitis and Planter fasciitis. States that her Achilles is feeling amazing she compliantly use the Medrol Dosepak and Cam boot states that she is doing great. Her fascial pain, states overall it is substantially better though still gives her some morning pain and post dyskinesia. Additionally with right plantar foot warts, states that the acid did burn well but she found a new wart to her heel and still believes that the warts that there are present painful and sore though improving. Physical Vascular: DP PT pulses are easily 2-4. CFT is normal no edema. Derm: Right plantar foot is still with some first MPJ and third MPJ as well as lateral fifth MPJ and heel interruption in skin lines subtle pinpoint bleeding with debridement and pain with compression and direct palpation. Nodules otherwise. Neuro: Intact. Musculoskeletal: Still with myofascial pain otherwise improved. No pain to the Achilles pushoff is intact. Assessment and plan: Patient is a pleasant 32-year-old female with improved Achilles nidus, still recalcitrant plantars fasciitis and painful foot plantar warts. -Regarding her cam boot can discontinue. No refills of steroids. Instead would meloxicam for the next 14 days 1 tab daily 15 mg to help finally prove her fascial pain. Lastly does require repeat topical cantharidin application. To continue to lift and heal her plantar wart. Procedure: After timeout was performed, and alcohol prep, did lift the lesion with pinpoint bleeding hemostasis was achieved with tamponade. Next applied cantharidin under occlusion and a postop shoe was applied. Remove this tomorrow wash well and applied Band-Aid. Follow-up in 2 weeks to reevaluate plantarly Straightforward medical complexity for decision making further fascia pain separate than for pain. documented in this encounter [facility] 09-27-2022 History of Present illness Narrative HPI Chief Complaint Patient presents with Foot Problem L ft plantar fasciitis, plantar warts bilateral, lump on R heel not painful Patient is a pleasant 32-year-old female who comes in today with her signs for multiple issues. Primarily complains about right Achilles pain and bilateral heel pain. Admits to post attic dyskinesia denies any trauma. States that she feels quite sore painful and uncomfortable. No trauma that she can recall. -Additionally regarding her right ankle, states that she feels like she can potentially feel a mass in her Achilles itself, hurts her with forced plantarflexion and pushoff. Lastly does complain about right foot plantar wart. States that has been present for many years. She states that she believes it is too deep to really try anything [id number] and comes in today to have this evaluated assessed and worked up. Past Medical History: Diagnosis Date Disease of thyroid gland Past Surgical History: Procedure Laterality Date CHOLECYSTECTOMY TUBAL LIGATION 04/25/2022 Social History Socioeconomic History Marital status: Tobacco Use Smoking status: Never Passive exposure: Never Smokeless tobacco: Never Vaping Use Vaping Use: Never used Substance and Sexual Activity Alcohol use: Yes Comment: occasional Drug use: Never Review of Systems Constitutional: Negative for fever. Respiratory: Negative for chest tightness, shortness of breath and wheezing. Gastrointestinal: Negative for nausea and vomiting. Musculoskeletal: Negative for gait problem and joint swelling. Skin: Positive for color change. Negative for wound. Physical Exam Patient is AOx3. Linear and appropriate humor and thought process. Vascular: DP PT pulses are easily palpable 2-4. CFT is fair no edema. Derm: Sub first MPJ and third MPJ right foot is with interruption in skin lines pinpoint pain with debridement and pain with compression each near 1 x 1 cm. No erythema no streaking or purulence. Neuro: Light touch is normal Babinski's is normal. Musculoskeletal: Muscle strength is 5 out of 5 with fair tone. Can easily wiggle toes and clicking or catching. Does have a possible palpable mass to the proximal edge of her Achilles tendon. Somewhat painful with forced plantarflexion. Patient has bilateral plantar fascial pain. X-rays: Does have clear and obvious bilateral calcaneal enthesophyte. No fractures dislocations or subluxations appreciated. Mild right ankle edema. Impression/Plan Problem List Items Addressed This Visit None Visit Diagnoses Achilles tendonosis of right lower extremity - Primary Relevant Orders Cam Walker Heel pain, bilateral Relevant Orders XR Calcaneus Right 2+ Views (Standard) XR Calcaneus Left 2+ Views (Standard) Plantar fasciitis Plantar warts Foot pain, right Patient is a pleasant 32-year-old female with right Achilles tendinosis with pain, bilateral Planter fasciitis left worse than right, painful right foot warts. -Regarding her Achilles tendon, this does require immobilization therefore did prescribe dispense and fit her with a cam boot which is medically necessary. Patient was ambulatory prior to this incident and is expected to regain ambulatory status after complete healing of injury. -Important to remove this to drive to sleep and shower. Regarding her bilateral Planter fasciitis, can perform stretching daily. Start oral Medrol Dosepak tomorrow called into [facility] pharmacy for its anti-inflammatory properties. Regarding her painful warts, did go over options been hyfrecation versus cantharidin and together decided with cantharidin. Procedure: After timeout consent was performed, and alcohol prep, the lesion was lifted with a 4 mm loop curette. Next applied topical cantharidin under occlusion to both sites and postop bandages applied. Low medical complexity decision making based on treating multiple issues simultaneously chronic issues and need for procedure. Follow-up in 2 weeks for potential repeat verrucous cantharidin treatment. documented in this encounter [facility] 09-27-2022 Instructions Abhay Miranda Jr., DPM - 09/27/2022 3:48 PM EST Take off bandaid tomorrow night. Wash well and apply new bandaid. Take off boot to drive, shower and to sleep. documented in this encounter [facility] 06-07-2022 History of Present illness Narrative SUBJECTIVE: 32 year old female presents for 2 week post-op exam. She is doing well. Feeling better since having Essure device removed, and pain has improved. Denies fevers, chills, pain, N/V, heavy bleeding or discharge. S/p laparoscopic bilateral salpingectomy with removal of Essure device, LEEP with ECC. Pathology: Benign. No cervical dysplasia noted OBJECTIVE: Incision: Dry and intact, without redness Abdomen: Soft and Non-tender PLAN: Reviewed surgery and pathology findings with pt RTO for annual exams and PRN. Repeat co testing 12 months after last pap I have reviewed and updated past medical and surgical history, medications and allergies. James Wheeler DO documented in this encounter [facility] 05-10-2022 History and physical note DATE OF SERVICE: May 10, 2022 PROBLEM: pelvic pain after Essure device placement, desires sterilization, persistent HPV DIAGNOSIS: as above PAST SURGICAL HISTORY: PAST SURGICAL HISTORY Procedure Laterality Date CHOLECYSTECTOMY HX ESSURE Bilateral 2017 Dr Herbert PAST MEDICAL HISTORY: PAST MEDICAL HISTORY Diagnosis Date Hypothyroidism SUBJECTIVE: Pt is doing well. Still having pelvic pain that started right after Essure device was placed. No other GI or symptoms that she can attribute the pain to. She is done child bearing. She desires sterilization. SOCIAL HISTORY: Social History Tobacco Use Smoking status: Never Smokeless tobacco: Never Vaping Use Vaping Use: Never used Substance Use Topics Alcohol use: Not Currently Drug use: Never ALLERGIES No Known Allergies Current Outpatient Medications on File Prior to Visit Medication Sig levothyroxine (SYNTHROID) 112 mcg tablet Take 1 tablet by mouth once daily. Take on empty stomach. For thyroid fexofenadine ER (HOLLY ALLERGY) 180 mg tablet Take 1 tablet by mouth once daily. multivit with calcium,iron,min (WOMEN'S MULTIPLE VITAMINS ORAL) Take 1 tablet by mouth once daily. Gummie No current facility-administered medications on file prior to visit. OBJECTIVE: VITALS: BP 120/80 Pulse 66 Resp 16 Ht 5' 7 (1.702 m) Wt 268 lb 6.4 oz (121.7 kg) LMP 05/08/2022 (Approximate) BMI 42.04 kg/m HEENT: Normocephalic, atraumatic, Mucus membranes moist without lesions. SKIN: No lesions. CHEST: Clear to auscultation. No wheezes or rales. Good air exchange. HEART: Regular rate and rhythm No S3 or S4. No gallops or rubs. BACK: Nontender. ABDOMEN: Non-distended LOWER EXTREMITIES: No pitting edema ASSESSMENT: pelvic pain after Essure device placement, desires sterilization, persistent HPV PLAN: 1) Discussed laparoscopic bilateral salpingectomy with Essure device removal, loop electrosurgical excision procedure with endocervical curetting. Pelvic US shows Essure device correctly placed. She understands if the Essure coils are not in the fallopian tubes at the time of surgery, they may be left in place. She understands I will be removing both fallopian tubes which is permanent sterilization, and it appears the Essure devices are within the tubes. She also understands this may not improve any chronic pelvic pain that she has, and at times can worsen pain if scar tissue develops from surgery. She knows an alternative to the LEEP procedure is repeat pap smear and HPV test in 12 months. Discussed the HPV virus can still be present after the LEEP. She desires to proceed with the surgery. The rationale for the proposed surgery was discussed in addition to risks, benefits, and alternatives. General pre- and post-operative care was reviewed. Questions were answered. After discussion, the patient indicated a desire to proceed with the planned surgery. James Wheeler DO Medical Decision Making: Problems: Moderate: 2+ stable chronic illnesses Risk: Moderate: Decision on minor surgery w/ risk factors Medical Decision Making Level: 4 - Moderate documented in this encounter [facility] 01-23-2022 Chief complaint Narrative - Reported An interactive audio and video telecommunication system which permits real time communications between the patient (at the originating site) and provider (at the distant site) was utilized to provide this telehealth service.Verbal consent was requested and obtained from RONALDO WHITTEN on this date, 01/23/2022 10:45 AM , for a telehealth visit.Virtual visit [phone] Sx, Cough, Fever (101)Started 01/19 Covid tested 01/20 - Negative [facility] Work Phone: 01-16-2022 History of Present illness Narrative VIRTUAL VISIT DUE TO COVID19 .COUGH WITH FEVER OF 101X 4 DAYS .PER PT SHE HAD URGENT CARE VISIT AND HAD NEGATIVE COVID TEST (UNSURE IF IT WAS PCR OR RAPID TEST) . PT WAS EXPOSED TO INFLUENZA A LAST WEEK. COUGH IS LESS SEVERE ,BUT FEVER IS STILL PRESENT. NO DIARRHEA. [facility] Work Phone: 01-01-2022 History of Present illness Narrative VIRTUAL VISIT DUE TO COVID19 .SINUS CONGESTION WITH MILD COUGH AND R EAR PAIN 5/10 ON AND OFF X 1 WEEK (EAR PAIN STARTED 2 DAYS AGO) . [facility] Work Phone: 12-20-2021 History of Present illness Narrative VIRTUAL VISIT PROGRESS NOTE This is a virtual visit using [employer] video visit. It required patient-provider interaction for the medical decision making as documented below. Ronaldo Whitten is a 31 year old female seen for discussion of surgery. Notes chronic pelvic pain since placement of Essure device. Recently had pelvic US showing proper location of Essure device. She desires removal of her tubes and the Essure device. Persistent positive HPV and abnormal pap smears. No high grade dysplasia on recent colposcopy. She desires LEEP procedure. HISTORY REVIEWED (electronic chart updated): PAST MEDICAL HISTORY Diagnosis Date Hypothyroidism PAST SURGICAL HISTORY Procedure Laterality Date CHOLECYSTECTOMY HX ESSURE Bilateral 2016 Dr Herbert FAMILY HISTORY Problem Relation Age of Onset Thyroid Mother hypothyroid Colon Cancer Mother 72 colon, liver Liver Cancer Mother Brain Cancer Father 75 Thyroid Sister Thyroid Sister Thyroid Paternal Grandmother Social History Tobacco Use Smoking status: Never Smoker Smokeless tobacco: Never Used Vaping Use Vaping Use: Never used Substance Use Topics Alcohol use: Not Currently Drug use: Never Current Outpatient Medications Medication Sig levothyroxine (SYNTHROID) 112 mcg tablet Take 1 tablet by mouth once daily. Take on empty stomach. For thyroid fexofenadine ER (HOLLY ALLERGY) 180 mg tablet Take 1 tablet by mouth once daily. multivit with calcium,iron,min (WOMEN'S MULTIPLE VITAMINS ORAL) Take 1 tablet by mouth once daily. Gummie No current facility-administered medications for this visit. ALLERGIES No Known Allergies REVIEW OF SYSTEMS: As noted in HPI PHYSICAL EXAMINATION: VIDEO EXAM: (if completed, performed via video enabled technology) GENERAL: alert and appropriate, in no distress, well-hydrated, well nourished and happy, smiling, interactive ASSESSMENT: (R10.2) Pelvic pain in female (primary encounter diagnosis) (Z98.890) History of female sterilization (R87.810) Cervical high risk HPV (human papillomavirus) test positive (Z87.42) History of abnormal cervical Pap smear PLAN: Discussed laparoscopic bilateral salpingectomy with removal of Essure device. She understands this may not improve her pain. Also discuss surgery can worsen chronic pain given formation of scar tissue. She understands removal of fallopian tubes is sterilization that is permanent and irreversible. Discussed recent colposcopy results and natural history of HPV. Given she no longer desires additional pregnancies in the future, and that she has had persistent positive HPV, she desires to proceed with treatment. Discussed LEEP procedure. Discussed that in the future she could have dysplasia and +HPV test again even after LEEP, and she understands importance of routine follow up. There are no Patient Instructions on file for this visit. I spent a total of 20 minutes on the date of the service which included preparing to see the patient, [id number] patient care, completing clinical documentation, obtaining and/or reviewing separately obtained history and counseling and educating the patient/family/caregiver James Wheeler DO documented in this encounter [facility] 11-27-2021 Miscellaneous Notes Signed. Sofi Blanco APRN.OIL PROCESS STILLMAN Letter placed in AG's mailbox to sign when she returns tomorrow. documented in this encounter [facility] Chief complaint Narrative - Reported An interactive audio and video telecommunication system which permits real time communications between the patient (at the originating site) and provider (at the distant site) was utilized to provide this telehealth service.C/O CONGESTION AND R. EAR PAIN X 7 DAYS -[facility] Work Phone: [facility] Diagnosis Chronic pelvic pain in female- Primary Unspecified symptom associated with female genital organs Cervical high risk HPV (human papillomavirus) test positive Cervical high risk human papillomavirus (HPV) DNA test positive Pre-op exam Preoperative examination, unspecified Request for sterilization [facility] Diagnosis Post-operative state- Primary Other postprocedural status [facility]* Diagnosis 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 Heel pain, bilateral Plantar fasciitis Plantar fascial fibromatosis Plantar warts Plantar wart Foot pain, right Pain in soft tissues of limb [facility] Diagnosis 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 Heel pain, bilateral Plantar fasciitis Plantar fascial fibromatosis Plantar warts Plantar wart Foot pain, right Pain in soft tissues of limb [facility] Diagnosis Foot pain, right- Primary Pain in soft tissues of limb Plantar warts Plantar wart [facility] Diagnosis Plantar warts- Primary Plantar wart Foot pain, right Pain in soft tissues of limb [facility] Diagnosis Plantar warts- Primary Plantar wart Foot pain, right Pain in soft tissues of limb [facility] Diagnosis Plantar warts- Primary Plantar wart [facility] Diagnosis Encounter for gynecological examination (general) (routine) without abnormal findings- Primary Class 3 severe obesity with body mass index (BMI) of 40.0 to 44.9 in adult, unspecified obesity type, unspecified whether serious comorbidity present (HCC) Screening for cervical cancer Screening for malignant neoplasm of the cervix Encounter for screening for human papillomavirus (HPV) Special screening examination for human papillomavirus (HPV) [facility] Diagnosis Plantar warts- Primary Plantar wart [facility] Diagnosis Wellness examination- Primary Class 3 severe obesity due to excess calories with serious comorbidity and body mass index (BMI) of 40.0 to 44.9 in adult (CMS/HCC) Positive depression screening Current moderate episode of major depressive disorder without prior episode (CMS/HCC) documented in this encounter [facility] Work Phone: Evaluation note* Diagnosis DUB (dysfunctional uterine bleeding) Other disorder of menstruation and other abnormal bleeding from female genital tract [facility] Diagnosis Abnormal uterine bleeding due to endometrial polyp- Primary [facility] Diagnosis Class 3 severe obesity due to excess calories with serious comorbidity and body mass index (BMI) of 40.0 to 44.9 in adult (CMS/HCC)- Primary Current moderate episode of major depressive disorder without prior episode ([facility]/HCC) documented in this encounter [facility] Work Phone: History of Present illness Narrative* Presents today for 2 WEEK EAR INFECTION F/U. NO NEW COMPLAINTS * THYROID- FOLLOWS WITH ENDO DR. MARI GONZALEZ IN [place] * VIT D- DR. GONZALEZ ADDRESSES * ALLERGIES- START PRN LORATADINE AND FLONASE [facility] Work Phone: Reason for referral (narrative)* Diagnostic Procedure Only (Routine) - Closed Specialty Diagnoses / Procedures Referred By Henrik pedroza Referred To Contact US IMAGING Diagnoses DUB (dysfunctional uterine bleeding) Procedures US FEMALE PELVIS TRANSVAG US TRANSVAGINAL Sofi Blanco APRN.ALEKSANDAR [address] [place] [address] [place] [address] Referral ID Status Reason Start Date Expiration Date V isits Requested Visits Authorized [id number] Closed Auto-Generate d Referral 07/03/2023 08/01/2024 1 1 [facility] Summary Purpose Family History No Family History Records FoundUnknown Family Member Name Dates Details Family history of hypertensi on: Mother(V17.49, Z82.49) Status:Active Family history of hyperchole sterolemia: Mother(V18.19, Z83.42) Status:Active No pertinent family history: Father(V49.89, Z78.9) Status:Active Unknown Family Member Name Dates Details Family history of hypertensi on: Mother(V17.49, Z82.49) Status:Active Family history of hyperchole sterolemia: Mother(V18.19, Z83.42) Status:Active No pertinent family history: Father(V49.89, Z78.9) Status:Active Unknown Family Member Name Dates Details Family history of hypertensi on: Mother(V17.49, Z82.49) Status:Active Family history of hyperchole sterolemia: Mother(V18.19, Z83.42) Status:Active No pertinent family history: Father(V49.89, Z78.9) Status:Active Advance Directives No Advanced Directives Records FoundNo Advanced Directives Records FoundNo Advanced Directives Records FoundNo Advanced Directives Records FoundNo Advanced Directives Records FoundNo Advanced Directives Records FoundNo Advanced Directives Records FoundNo Advanced Directives Records FoundNo Advanced Directives Records Found Chief Complaint PT HERE TODAY FOR 2 WK F/U EAR INFECTION. PT STATES THE PAIN HAS GONE AWAY. PT HAS NO CONCERNS TODAY Reason for Referral Specialty Diagnoses / Procedures Referred By Henrik t Referred To Contact Diagnoses Class 3 severe obesity with body mass index (BMI) of 40.0 to 44.9 in adult, unspecified obesity type, unspecified whether serious comorbidity present (HCC) Procedures CONSULT [facility] OFFICE/OUTPATIENT NEW HIGH MDM 60-74 MINUTES Sofi Blanco, PIOTR.OIL PROCESS STILLMAN [address] [place] [address] Referral ID Status Reason Start Date Expiration Date Visits Requested Visits Authorized [id number] Authorized PCP Requested Referral 12/06/2022 12/06/2023 1 1 Additional Source Comments INFORMATION SOURCE (unrecogn ized section and content) DATE CREATED AUTHOR AUTHOR'S ORGANIZ ATION 03/03/2019 [facility] DATE CREATED AUTHOR AUTHOR'S ORGANIZ ATION 05/21/2021 [facility] DATE CREATED AUTHOR AUTHOR'S ORGANIZ ATION 04/17/2022 [facility] DATE CREATED AUTHOR AUTHOR'S ORGANIZ ATION 06/29/2022 [facility] DATE CREATED AUTHOR AUTHOR'S ORGANIZ ATION 11/02/2022 [facility] DATE CREATED AUTHOR AUTHOR'S ORGANIZ ATION 01/05/2023 [facility] DATE CREATED AUTHOR AUTHOR'S ORGANIZ ATION 08/16/2023 [facility] DATE CREATED AUTHOR AUTHOR'S ORGANIZ ATION 08/17/2023 [facility] Source Comments (unrecognize d section and content) In the event this informatio n is protected by the Federal Confidentiality of Alcohol and Drug Abuse Patient Records regulations: The Federal rules restrict any use of the information to criminally investigate or prosecute any alcohol or drug abuse patient.[facility] the event this information is protected by the Federal Confidentiality of Alcohol and Drug Abuse Patient Records regulations: The Federal rules restrict any use of the information to criminally investigate or prosecute any alcohol or drug abuse patient.[facility] the event this information is protected by the Federal Confidentiality of Alcohol and Drug Abuse Patient Records regulations: The Federal rules restrict any use of the information to criminally investigate or prosecute any alcohol or drug abuse patient.[facility] the event this information is protected by the Federal Confidentiality of Alcohol and Drug Abuse Patient Records regulations: The Federal rules restrict any use of the information to criminally investigate or prosecute any alcohol or drug abuse patient.[facility] the event this information is protected by the Federal Confidentiality of Alcohol and Drug Abuse Patient Records regulations: The Federal rules restrict any use of the information to criminally investigate or prosecute any alcohol or drug abuse patient.[facility] the event this information is protected by the Federal Confidentiality of Alcohol and Drug Abuse Patient Records regulations: The Federal rules restrict any use of the information to criminally investigate or prosecute any alcohol or drug abuse patient.[facility] the event this information is protected by the Federal Confidentiality of Alcohol and Drug Abuse Patient Records regulations: The Federal rules restrict any use of the information to criminally investigate or prosecute any alcohol or drug abuse patient.[facility] the event this information is protected by the Federal Confidentiality of Alcohol and Drug Abuse Patient Records regulations: The Federal rules restrict any use of the information to criminally investigate or prosecute any alcohol or drug abuse patient.[facility] the event this information is protected by the Federal Confidentiality of Alcohol and Drug Abuse Patient Records regulations: The Federal rules restrict any use of the information to criminally investigate or prosecute any alcohol or drug abuse patient.[facility] Care Teams (unrecognized sec tion and content) Etymology Teacher Relationship Specialty Start Date End Date Charito Clark PA [address] [place] [address] PCP - General Internal Medicine 09/19/18 Etymology Teacher Relationship Specialty Start Date End Date Charito Clark PA [address] [place] [address] PCP - General Internal Medicine 09/19/18 Etymology Teacher Relationship Specialty Start Date End Date Charito Clark PA [address] [place] [address] PCP - General Internal Medicine 09/19/18 Etymology Teacher Relationship Specialty Start Date End Date No, Physician [facility] PCP - General 01/20/22 Etymology Teacher Relationship Specialty Start Date End Date No, Physician [facility] PCP - General 01/20/22 Etymology Teacher Relationship Specialty Start Date End Date No, Physician [facility] PCP - General 01/20/22 Etymology Teacher Relationship Specialty Start Date End Date No, Physician [facility] PCP - General 01/20/22 Etymology Teacher Relationship Specialty Start Date End Date No, Physician [facility] PCP - General 01/20/22 Etymology Teacher Relationship Specialty Start Date End Date No, Physician [facility] PCP - General 01/20/22 Etymology Teacher Relationship Specialty Start Date End Date Charito Clark PA [address] [place] [address] PCP - General Internal Medicine 09/19/18 Etymology Teacher Relationship Specialty Start Date End Date Sofi Melton, SENIOR GAMES TECHNICIAN-OIL PROCESS STILLMAN [address] [place] [address] PCP - General 06/28/22 Etymology Teacher Relationship Specialty Start Date End Date Charito Clark PA [address] [place] [address] PCP - General Internal Medicine 09/19/18 Etymology Teacher Relationship Specialty Start Date End Date Charito Clark PA [address] [place] [address] PCP - General Internal Medicine 09/19/18 Etymology Teacher Relationship Specialty Start Date End Date Charito Clark PA [address] [place] [address] PCP - General Internal Medicine 09/19/18 Etymology Teacher Relationship Specialty Start Date End Date Sofi Melton, SENIOR GAMES TECHNICIAN-OIL PROCESS STILLMAN [address] [place] [address] PCP - General 06/28/22 Reason for Visit (unrecogniz ed section and content) Reason Onset Date Comments Post-Op Visit 06/07/2022 Reason Comments Foot Problem L ft plantar fasciit is, plantar warts bilateral, lump on R heel not painful Reason Comments Follow-up Follow up warts and right achilles tendonosis. Pt thinks wart came off, but says she has other warts that were missed. Pt states achilles tendon is feeling better along with the plantar fascitis. Reason Comments Follow-up R foot warts - pt st ates that she is doing better Reason Comments Plantar Warts Follow up right foot plantar warts treated with cantharidin last visit. Reason Comments Procedure R foot wart sx Reason Comments Post-op S/p R foot wart sx Reason Comments Well Woman Reason Comments Post-op R foot wart excision - doing well Reason Comments Annual Exam NO CONCERNS Reason Comments Radiology US Specialty Diagnoses / Procedures Referred By Contac t Referred To Contact US IMAGING Diagnoses DUB (dysfunctional uterine bleeding) Procedures US FEMALE PELVIS TRANSVAG US TRANSVAGINAL Sofi Blanco APRN.OIL PROCESS STILLMAN [address] [place] [address] [place] [address] Referral ID Status Reason Start Date Expiration Date V isits Requested Visits Authorized [id number] Closed Auto-Generate d Referral 07/03/2023 08/01/2024 1 1 Reason Comments Follow Up For Reason Comments Follow-up 1 month med check FOR RECORDS PERTAINING TO PATIENTS WHO ARE OR HAVE BEEN ENROLLED IN A CHEMICAL DEPENDENCY/SUBSTANCEABUSE PROGRAM, SOME INFORMATION MAY BE OMITTED. This clinical summary was aggregated from multiple sources. Caution should be exercised in using it in the provision of clinical care. This summary normalizes information from multiple sources, and as a consequence, information in this document may materially change the coding, format and clinical context of patient data. In addition, data may be omitted in some cases. CLINICAL DECISIONS SHOULD BE BASED ON THE PRIMARY CLINICAL RECORDS. [employer] [facility]. provides no warranty or guarantee of the accuracy or completeness of information in this document.
[2023-08-22 07:42] VITALS: BP 132/93; PULSE 98; RESP 17; TEMP 36.3; O2SAT 97; BMI 43.4
[2023-08-22] MEDS: Lactated Ringers 1,000 ML 15 ML IV (07:47)
--- NOTE | 2023-08-22 09:12 | PCM.OPRPT ---
Problems Associated Problem List Diagnoses (1) Uterine polyp: (2) DUB (dysfunctional uterine bleeding): Report of Operation Date of Procedure: 08/22/23 Pre-Operative Diagnosis: DUB Post-Operative Diagnosis: As above Surgery/Procedure Performed:: Hysteroscopy D&C Description of Surgical Findings:: Normal appearing uterine cavity with thin endometrium. No polyps or fibroids noted. Bilateral tubal ostia visualized. No descent of uterus and cervix. Surgeon: Meena Wheeler local company hazmat driver: None Type of Anesthesia: MAC Special Medications: None Specimen's removed: Endometrial curettings Drains: None Estimated Blood Loss (mL): < 50 Fluids Replaced: 100 cc fluid deficit Description of Procedure: The patient was taken to the operating room where MAC anesthesia was induced and adequate. She was prepped and draped in the dorsal lithotomy position using yellowfin stirrups. A weighted speculum was placed in the vagina to expose the cervix. A single-tooth tenaculum was placed on the anterior lip of the cervix. The cervix was serially dilated to accommodate the Symphion hysteroscope. The Symphion hysteroscope was advanced into the uterus and the uterus was distended with normal saline as distention media. The uterine cavity was normal-appearing and bilateral tubal ostia were visualized. The endometrium was thin appearing. There were no endometrial polyps or fibroids noted. The Symphion hysteroscope was then slowly removed through the cervical canal and no endocervical polyps were noted. The hysteroscope was removed. A sharp curettage was performed. The endometrial curettings were sent to pathology for review. All instruments were removed from the vagina and vaginal sweep was performed. Bleeding was hemostatic. Instrument and sponge counts were correct. The patient was taken to the recovery in stable condition. Grafts/Implants Used: None Procedure Start Time: 08:55 Procedure Stop Time: 09:10 Complications None Admit VTE Documentation VTE Present on Admission: No VTE Mechan Device Prophylaxis: SCD's
[2023-08-22 09:20] VITALS: BP 132/93; BP 133/88; PULSE 91; RESP 16; TEMP 36.2; O2SAT 95
[2023-08-22 09:25] VITALS: BP 132/93; BP 137/84; PULSE 85; RESP 16; O2SAT 96
[2023-08-22 09:30] VITALS: BP 132/63; BP 132/93; PULSE 87; RESP 16; TEMP 36.3; O2SAT 96
[2023-08-22 09:46] VITALS: BP 132/93
--- NOTE | 2023-08-22 09:51 | DCINST_ITS ---
Discharge Instructions Diet Discharge Diet: No restrictions Activity Discharge Activity: May Drive (once you are more than 24 hours out from surgery) and May Shower (once you are more than 24 hours out from surgery) May resume sexual activity in: 1-2 weeks (nothing in the vagina and no soaking in water for 1-2 weeks while having the vaginal bleeding) Weight Bearing Status: Weight bearing as tolerated Dressing / Incision Call your doctor if you observe: Fever of 101 or Higher, Coldness, Increased Pain, Numbness or Tingling, Change in Color, Inability to urinate, Inability to have a bowel movement, Using more than 1 pad per hour, Shortness of breath, Dizziness, Fainting spells, Swelling in the ankles, Chest pain, Increased palpitations (irregular heartbeat), Calf discomfort and Uncontrolled pain Follow Up Care Please Follow Up With: Meena Wheeler DO When: 1-2 weeks Test Results: Test results from this visit will be discussed in further detail at your follow- up appointment, if applicable. Discharge Plan Admission Primary Reason for Your Visit: surgery Attending Provider: Meena Wheeler Primary Care Provider: ENID MARTINEZ Instructions Patient Instructions: Dilation and Curettage Discharge Orders/Prescriptions Prescriptions: Continued levothyroxine 175 mcg tablet 175 mcg PO DAILY Qty: 90 3RF ibuprofen 600 mg tablet 600 mg PO Q6H PRN (Reason: pain) Qty: 20 0RF bupropion HCl 150 mg tablet extended release 24 hr 150 mg PO DAILY Referrals / Follow Up: Danielle Clark, PA [Non-Staff] - Disposition Disposition (needs filled in before D/C Order can be placed): Home, Self Care
== END 2023-08-22 10:12 | disposition home or self-care (01) ==
LOC: SDC 07:16 → AC 07:17
PROVIDERS: Referring Provider Obstetrics & Gynecology; Visit Provider Obstetrics & Gynecology
PROC: 0UB98ZZ Excision of Uterus, Via Natural or Artificial Opening Endoscopic (ICD-10-PCS; CPT 58558; principal; 2023-08-22 08:30)
DX: N93.8 Other specified abnormal uterine and vaginal bleeding (principal); N84.0 Polyp of corpus uteri; E03.9 Hypothyroidism, unspecified; F32.A Depression, unspecified; Z79.899 Other long term (current) drug therapy
CPT/HCPCS: 58558; 00952; 81025; 85027; 86850; 86900; 86901; 88305; J7120; J2405

== ENCOUNTER → 2023-10-20 | Outpatient (CLI) | payer OTHER, SELFPAY ==
[2023-10-20 17:06] LABS: Vitamin D,25 Hydroxy 21.1 ng/mL
[2023-10-20 17:09] LABS: T4 Free Direct 1.16 ng/dL (0.76-1.46); Thyroid Stim Hormone (TSH) 2.08 uIU/mL (0.358-3.74)
--- OUTSIDE RECORDS SUMMARY | 2023-10-20 23:58 | XMS RPT_ITS | CCD ---
Author Name Unknown Address [address] [place] [address] Organization [facility] Care Team Providers Care Manager Technical Sales Name Role Phone Cesia Sullivan Admitting Unavailable Cesia Sullivan Attending Unavailable Charito Jefferson Primary Care Provider Tavallaee, Zachery M Unavailable Unavailable Unavailable NO, PHYSICIAN Primary Care Unavailable DELPHINE ALEMAN Attending Unavailab DELPHINE Escobar Attending Unavailab le NO, PHYSICIAN Primary Care Unavailable Charito Jefferson Primary Care Provider 1( [phone] Sofi Angel Unavailable No, Physician Primary Care Provider Unavailabl e Sofi Melton Attending Unavailable Sofi Melton Referring Unavailable Tavallaee, Zachery Primary Care Unavailable Tavallaee, Zachery Primary Care Unavailable Zarafal, Arabella Attending Unavailable Zarrabi, Arabella Referring Unavailable Tavallaee, Zachery Primary Care Unavailable Tavallaee, Zachery Attending Unavailable Tavallaee, Zachery Referring Unavailable Charito Jefferson Primary Care Provider DASHAWN JR., ABHAY Referring Unavailable DASHAWN JR., [...] Care Unavailable Sofi Nixon Primary Care Provider Charito Jefferson Primary Care Provider SOFI MELTON Attending Unavailable MELTON, SOFI Jerry Primary Care Unavailable MELTON, SOFI Jerry Attending Unavailable MELTON, SOFI Jerry Primary Care Unavailable MELTON, SOFI D Attending Unavailable MELTON, SOFI D Primary Care Unavailable KEVIN CHARITO B Primary Care Unavailable SOFI BLANCO Referring Unavailable KEVIN CHARITO B Primary Care Unavailable DEEJAY SOFI Attending Unavailable CHARITO CLARK B Primary Care Unavailable BLANCO, SOFI Attending Unavailable CHARITO CLARK B Primary Care Unavailable JAMES WHEELER Attending Unavailable CHARITO CLARK Primary Care Unavailable JAMES WHEELER Attending Unavailable CHARITO CLARK B Primary Care Unavailable SOFI BLANCO Attending Unavailable Medications Current Medications Medication Drug Class(es) [...] (1 source) Fever; Translations: [Fever, unspecified] Episodic Malaise and fatigue (1 source) Other fatigue; Translations: [Other fatigue] Onset: 09-05-2023 Episodic Menopausal disorders (1 source) Excessive bleeding in the premenopausal period; Translations: [Excessive bleeding in premenopausal period] Onset: 09-05-2023 Chronic Mood disorders (5 sources) Moderate major depression, [...] (severe) obesity due to excess calories; Translations: [Morbid (severe) obesity due to excess calories (CMS/HCC)] Onset: 12-06-2022 Chronic Other nutritional; endocrine; and metabolic disorders (3 sources) Body mass index (BMI) 40.0-44.9, adult; Translations: [Body mass index (BMI) 40.0-44.9, adult (CMS/HCC)] Onset: 12-06-2022 Chronic Other upper respiratory disease [...] 09:19-0500 Body weight 125.19 kg Sofi Blanco APRN.PC INSTALLATION ENGINEER Work Phone: [facility] 07-08-2023 09:19-0500 Diastolic blood pressure 86 mm[Hg] Sofi Blanco APRN.PC INSTALLATION ENGINEER Work Phone: [facility] 07-08-2023 09:19-0500 Systolic blood pressure 120 mm[Hg] Sofi Blanco APRN.PC INSTALLATION ENGINEER Work Phone: [facility] 06-27-2023 09:18-0400 Body height 170.2 cm Sofi Melton APRN-PC INSTALLATION ENGINEER Work Phone: [facility] 06-27-2023 09:18-0400 Body mass index (BMI) [Ratio] 41.97 kg/m2 Sofi Melton APRN-PC INSTALLATION ENGINEER Work Phone: [facility] 06-27-2023 09:18-0400 Body weight 121.56 kg Sofi Melton APRN-PC INSTALLATION ENGINEER Work Phone: [facility] 06-27-2023 09:18-0400 Diastolic blood pressure 82 mm[Hg] Sofi Melton APRN-PC INSTALLATION ENGINEER Work Phone: [facility] 06-27-2023 09:18-0400 Heart rate 82 /min Sofi Melton APRN-PC INSTALLATION ENGINEER Work Phone: [facility] 06-27-2023 09:18-0400 SaO2% (BldA) [Mass fraction] 98 % Sofi Melton APRN-PC INSTALLATION ENGINEER Work Phone: [facility] 06-27-2023 09:18-0400 Systolic blood pressure 122 mm[Hg] Sofi Melton APRN-PC INSTALLATION ENGINEER Work Phone: [facility] 01-03-2023 10:08-0400 Body temperature 98.2 [degF] Abhay Miranda Jr., DPM Work Phone: [facility] 01-03-2023 10:08-0400 Diastolic blood pressure 85 mm[Hg] Abhay Miranda Jr., DPM Work Phone: [facility] 01-03-2023 10:08-0400 Heart rate 80 /min Abhay Miranda Jr., DPM Work Phone: [facility] 01-03-2023 10:08-0400 Systolic blood pressure 146 mm[Hg] Abhay Miranda Jr., DPM Work Phone: [facility] 12-06-2022 11:02-0400 Diastolic blood pressure 88 mm[Hg] Abhay Miranda Jr., DPM Work Phone: [facility] Encounters Encounter Date Encounter Type Care Provider Facility Start: 09-05-2023 End: 09-06-2023 ambulatory CHARITO Ronald KEVIN Facility:[facility] Start: 08-15-2023 End: 08-15-2023 ambulatory CHARITO Ronald [place] Facility:[facility] Start: 08-15-2023 End: 08-15-2023 ambulatory SOFI MELTON [facility] Start: 08-15-2023 End: 08-15-2023 Office outpatient visit 15 minutes Sofi Melton CELL ASSEMBLY PINNER-PC INSTALLATION ENGINEER Work Phone: [facility] Procedures Date Procedure Procedure Detail Performing Clinician Start: 07-03-2023 transvaginal Sofi hidalgo APRN.PC INSTALLATION ENGINEER Work Phone: Start: 12-06-2022 Microscopic observat ion [Identifier] in Cervix by Cyto stain Abhay Miranda Jr., DPM Work Phone: Start: 11-29-2022 SKIN PREP Abhay mcbride DPM Work Phone: Start: 11-01-2022 Lipid 1996 panel - S apoorva or Plasma Sofi Melton CELL ASSEMBLY PINNER-PC INSTALLATION ENGINEER Work Phone: Start: 09-27-2022 NURSING COMMUNICATIO N - DO NOT USE IN ORDER SETS Abhay Miranda DPM Work Phone: Start: 10-25-2021 Microscopic observat ion [Identifier] in Cervix by Cyto stain Abhay Miranda Jr., DPM Work Phone: Cholecystectomy Zachery correia Work Phone: Plan of Treatment Date Care Activity Detail Author Start: 2039 Zoster Vaccines (1 of 2) Zoster Vaccines (1 of 2) [facility] Start: 12-07-2027 HPV Testing HPV Testing [facility] Start: 12-07-2027 Pap Testing Pap Testing [facility] Start: 12-07-2027 Screening for malignant neoplasm of cervix [facility] Start: 11-02-2027 Lipid panel Lipid Panel [facility] Start: 10-25-2026 HPV TESTING HPV TESTING [facility] Start: 10-25-2026 PAP TESTING PAP TESTING [facility] Start: 12-06-2025 Screening for malignant neoplasm of cervix [facility] Start: 10-25-2024 Screening for malignant neoplasm of cervix Pap Smear [facility] Start: 07-02-2024 End: 07-02-2024 Patient encounter procedure 07/02/2024 9:00 AM EST Office Visit [facility] [address] [place] [phone] Sofi Melton, CELL ASSEMBLY PINNER-PC INSTALLATION ENGINEER [address] [place], [place] [id number] [facility] Start: 06-28-2024 Yearly Adult Physical Yearly Adult Physical [facility] Start: 06-27-2024 End: 06-27-2024 CBC W Auto Differential panel - Blood CBC and Auto Differential Lab Routine Wellness examination Expected: 06/27/2024 (Approximate), Expires: 06/27/2024 [facility] Service Area Work Phone: Payers Date Payer Category Payer Unknown MMO MMO [employer] [id number] 2021-Present [phone] [address] [place] [address] [facility] [id number] 2021 Unknown 2021 Unknown [id number] 1989 Unknown [id number] [id number] 02 1989 Unknown [id number] [id number] 02 1989 Unknown [id number] 2.16.840.1.290424.3.579.2.3 56 1989 Unknown [id number] 2.16.840.1.409988.3.579.2.3 56 1989 Unknown [id number] 2.16.840.1.345995.3.579.2.3 56 1989 Unknown [id number] 2.16.840.1.517214.3.579.2.9 03 1989 Unknown [id number] 2.16.840.1.910636.3.579.2.9 03 1989 Unknown [id number] 2.16.840.1.533757.3.579.2.9 03 1989 Unknown [id number] 2.16.840.1.150835.3.579.2.9 03 1989 Unknown [id number] 2.16.840.1.272846.3.579.2.9 03 1989 Unknown [id number] 2.16.840.1.911965.3.579.2.9 03 1989 Unknown [id number] 2.16.840.1.649684.3.579.2.9 03 1989 Unknown [id number] 2.16.840.1.091554.3.579.2.9 03 1989 Unknown [id number] 2.16.840.1.822640.3.579.2.9 03 1989 Unknown [id number] 2.16.840.1.442690.3.579.2.1 244 1989 Unknown [id number] 2.16.840.1.995509.3.579.2.1 244 1989 Unknown [id number] [id number] 244 [facility] [id number] Unknown [id number] Social History Date Type Detail Facility Start: 09-19-2018 End: 03-19-2023 Tobacco smoking status NHIS Never smoked tobacco [facility] Start: 09-19-2018 End: 03-19-2023 Tobacco use and exposure Smokeless tobacco non-user [facility] Start: 11-09-2021 End: 06-07-2022 Alcohol intake Ex-drinker (finding) [facility] Start: 10-15-2019 End: 10-25-2019 History SDOH Alcohol Frequency 1 [facility] Start: 10-15-2019 History SDOH Social Connections Phone 4 [facility] Start: 10-15-2019 End: 10-25-2019 History SDOH Social Connections Membership 2 [facility] Start: 10-15-2019 History SDOH Social Connections Living 3 [facility] Start: 10-15-2019 End: 10-25-2019 History SDOH Physical Activity DPW 5 [facility] Start: 10-15-2019 History SDOH Physica l Activity MPS 9 [facility] Start: 10-15-2019 Education 13 [facility] Start: 1990 Sex Assigned At Female C [facility] Start: 10-30-2021 End: 06-27-2023 Exposure to SARS-CoV-2 (event) Not sure [facility] Start: 11-29-2022 End: 06-27-2023 Never smoked tobacco Never smoked tobacco [facility] Work Phone: Start: 09-27-2022 End: 08-15-2023 Alcohol intake Current drinker of alcohol (finding) [facility] Start: 01-20-2022 End: 12-06-2022 Alcohol Comment occasional [facility] Start: 1990 Sex Assigned At Not on file O [facility] Start: 11-29-2022 End: 06-27-2023 Tobacco use panel [facility] Start: 06-26-2023 Alcohol Comment Maybe once a w [place] one or two glasses on the weekends [facility] Work Phone: Do you belong to any clubs or organizations such as voodoo groups, unions, fraternal or athletic groups, or school groups? No [facility] Work Phone: Are you now , , , , never or living with a partner? [facility] Work Phone: How often to you hav e a drink containing alcohol? Never [facility] Work Phone: Average Number of Drinks Not on file [facility] Work Phone: Do you feel stress - tense, restless, nervous, or anxious, or unable to sleep at night because your mind is troubled all the time - these days [OSQ] To some extent [facility] Work Phone: (I/We) worried whejaime er (my/our) food would run out before (I/we) got money to buy more. Never true [facility] Work Phone: Start: 11-07-2021 Gender identity Identifies as female gender (finding) [facility] Start: 11-07-2021 Sexual orientation Heterosexual (fin ding) [facility] Start: 08-05-2023 End: 08-15-2023 Exposure to SARS-CoV-2 (event) Unable to assess [facility] Work Phone: NEGATED: Highlighted rowStart: NINF History of tobacco use Passive smoker [facility] Clinical Notes 11-27-2021 to 09-05-2023 ISIDRA Cole - 08/15/2023 9:40 AM Sofi Rice APRN.CNP - 07/08/2023 9:11 AM Kalee Blankenship RDKS - 07/03/2023 1:45 PM ISIDRA Dorado - 06/27/2023 9:20 AM EDT Note Date & Type Note Facility 09-05-2023 Note HNO ID: [id number] Author: JAMES WHEELER MD Service: ? Author Type: Physician Type: Progress Notes Filed: 09/05/2023 14:54 Note Text: DATE OF SERVICE: 09/05/2023 PROBLEM: Ronaldo Whitten presents for postop visit. SURGERY AND DATE: 08/22/2023 Hysteroscopy [facility] PATHOLOGY: Disordered proliferative endometrium SUBJECTIVE/INTERVAL HISTORY: Ronaldo Whitten is doing well. Burning with urination has resolved. No fevers, chills, pain, N/V, vaginal discharge. Currently on menses and it was very heavy bleeding. The bleeding has slowed. Some fatigue. OBJECTIVE: VITALS: BP 120/90 Wt 275 lb (124.7 kg) LMP 08/13/2023 (Approximate) BMI 43.72 kg/m? HEENT: Normocephalic and atraumatic ASSESSMENT: post op doing well PLAN: 1. Discussed results of pathology and surgery with patient. 2. Discussed recommendation for progesterone IUD given concern for hyperplasia and uterine cancer in the future, and to also help with menorrhagia. Discussed importance of weight loss. James Wheeler, [facility] 08-15-2023 Note HNO ID: [id number] Author: James Wheeler MD Service: ? Author Type: Physician Type: Progress Notes Filed: 08/21/2023 8:10 AM Note Text: DATE OF SERVICE: August 15, 2023 PROBLEM: DUB, endometrial polyp PAST SURGICAL HISTORY: PAST SURGICAL HISTORY Procedure Laterality Date CHOLECYSTECTOMY HX ESSURE Bilateral 2016 Dr Piedad LOCKHART PROCEDURE (W NOTE) 05/23/2022 SALPINGECTOMY Bilateral 05/23/2022 removal of Essure device PAST MEDICAL HISTORY: PAST MEDICAL HISTORY Diagnosis Date Abnormal uterine bleeding due to endometrial polyp 07/08/2023 Hypothyroidism SUBJECTIVE: DUB SOCIAL HISTORY: Social History Tobacco Use Smoking status: Never Smokeless tobacco: Never Vaping Use Vaping Use: Never used Substance Use Topics Alcohol use: Yes Comment: occasional Drug use: Never ALLERGIES No Known Allergies Current Outpatient Medications on File Prior to Visit Medication Sig buPROPion XL (WELLBUTRIN XL) 150 [...] facility-administered medications on file prior to visit. 07/03/2023 Endometrium, biopsy: - Segments of endometrial [...] present. 12/06/2022 Pap normal with negative HPV The above was copied and pasted from encounter dated 07/08/23 OBJECTIVE: VITALS: BP 122/80 Wt 276 lb (125.2 kg) LMP 08/13/2023 (Approximate) BMI 43.88 kg/m? HEENT: Normocephalic, atraumatic, Mucus membranes moist without lesions. NECK: Soft and Supple. No adenopathy , thyromegaly or bruits. SKIN: No lesions. CHEST: No wheezes. Good air exchange. HEART: Regular rate. BACK: Nontender with no CVA tenderness. ABDOMEN: Soft, non-tender, non-distended, no masses, no hepatosplenomegaly. LOWER EXTREMITIES: There was no pitting edema, no palpable cords and no skin changes. ASSESSMENT: pre op PLAN: 1) Discussed hysteroscopy, polypectomy, DANDC. Discussed progesterone IUD which patient declines at this time. The rationale for the proposed surgery was discussed in addition to risks, benefits, and alternatives. General pre- and post-operative care was reviewed. Questions were answered. After discussion, the patient indicated a desire to proceed with the planned surgery. James Wheeler, DO Medical Decision Making: Problems: Moderate: New problem with uncertain prognosis Risk: Moderate: Decision on minor surgery w/ risk factors Medical Decision Making Level: 4 - Moderate [facility] 08-15-2023 History of Present illness Narrative Subjective [...] (BMI) of 40.0 to 44.9 in adult ([facility]) - Primary Current moderate episode of major depressive disorder without prior episode ([facility]) Relevant Medications buPROPion XL (Wellbutrin XL) 150 [...] up as before documented in this encounter [facility] Work Phone: 07-08-2023 Note HNO ID: [id number] Author: Sofi Blanco APRN.ALEKSANDAR Service: ? Author [...] L2 SAB0 IAB0 Ectopic0 Multiple0 Live Births0 Audit Associate History LMP: 06/22/2023 (Approximate), Having periods Age at Menarche: Age at First : Age at Menopause: Audit Associate History Comments: Sexual Activity: Yes; Male; Essure [...] which included preparing to see the patient, [id number] patient care, completing clinical documentation, obtaining and/or reviewing separately obtained history, performing a medically appropriate examination, counseling and educating the patient/family/caregiver, and ordering medications, tests, or procedures. [facility] 07-08-2023 History of Present illness Narrative [...] L2 SAB0 IAB0 Ectopic0 Multiple0 Live Births0 Audit Associate History LMP: 06/22/2023 (Approximate), Having periods Age at Menarche: Age at First : Age at Menopause: Audit Associate History Comments: Sexual Activity: Yes; Male; Essure [...] which included preparing to see the patient, [id number] patient care, completing clinical documentation, obtaining and/or reviewing separately obtained history, performing a medically appropriate examination, counseling and educating the patient/family/caregiver, and ordering medications, tests, or procedures. documented in this encounter [facility] 07-03-2023 Note HNO ID: [id number] Author: Kalee Zuleta RDMS Service: ? Author Type: Asset Coordinator Type: Progress Notes Filed: 07/03/2023 3:42 PM [...] Not applicable SIGNED BY: Kalee Zuleta RDMS T July 03, 2023 3:42 PM [facility] 07-03-2023 History of Present illness Narrative [...] Not applicable SIGNED BY: Kalee Zuleta RDMS Radha July 03, 2023 3:42 PM documented in this encounter [facility] 07-03-2023 Note HNO ID: [id number] Author: Sofi Blanco APRN.PC INSTALLATION ENGINEER Service: ? Author Type: Nurse Practitioner Type: Progress Notes Filed: 07/03/2023 5:25 PM Note Text: Surgery Tech offered: Patient declines. Ronaldo Whitten is a [...] L2 SAB0 IAB0 Ectopic0 Multiple0 Live Births0 Audit Associate History LMP: 06/22/2023 (Approximate), Having periods Age at Menarche: Age at First : Age at Menopause: Audit Associate History Comments: Sexual Activity: Yes; Male; Essure [...] external genitalia normal, normal Bartholin's glands, urethra, Edmonson's glands, no vulvar lesions, no cervical lesions, [...] today - SURGICAL PATHOLOGY - PELVIC [facility] Will schedule visit to discuss results and [...] well. ASSESSMENT: abnormal (more content not included)... [facility] 06-27-2023 History of Present illness Narrative [...] FOLLOWS WITH ENDO DR. MARI GONZALEZ [place]- DR. GONZALEZ ADDRESSES ALLERGIES- START [...] MONTH MED CHECK documented in this encounter [facility] Work Phone: 01-03-2023 History of Present illness [...] any new issues. documented in this encounter [facility] 12-06-2022 History of Present illness Narrative Status [...] for long-term follow-up. documented in this encounter [facility] 12-06-2022 Note HNO ID: [id number] Author: Sofi Blanco APRN.PC INSTALLATION ENGINEER Service: ? Author Type: Nurse Practitioner Type: Progress Notes Filed: 12/06/2022 7:19 PM Note Text: Surgery Tech offered: Patient declines. Ronaldo is a 32 [...] abnormal pap: Yes, 2019 colposcopy benign: 2020 [place] LSIL 2021 LEEP benign pathology Last mammogram: never Sexually active: Yes Patient concerns for STD exposure: No. Time with current partner: 17 years Pain with intercourse: No Postcoital bleeding: No Documentation from previous visit of 10/25/2021 was copied and pasted, documentation has been reviewed and edited as necessary for today's visit. OB History T2 L2 SAB0 IAB0 Ectopic0 Multiple0 Live Births0 Audit Associate History LMP: 06/07/2022 (Approximate), Having periods Age at Menarche: Age at First : Age at Menopause: Audit Associate History Comments: Sexual Activity: Yes; Male; Essure [...] external genitalia normal, normal Bartholin's glands, urethra, Edmonson's glands, no vulvar lesions, no cervical lesions, [...] year or sooner as needed Sofi Blanco APRN.[facility] 12-06-2022 History of Present illness Narrative Surgery Tech offered: Patient declines. Ronaldo is a 32 [...] abnormal pap: Yes, 2019 colposcopy benign: 2020 [place] LSIL 2021 LEEP benign pathology Last mammogram: never Sexually active: Yes Patient concerns for STD exposure: No. Time with current partner: 17 years Pain with intercourse: No Postcoital bleeding: No Documentation from previous visit of 10/25/2021 was copied and pasted, documentation has been reviewed and edited as necessary for today's visit. OB History T2 L2 SAB0 IAB0 Ectopic0 Multiple0 Live Births0 Audit Associate History LMP: 06/07/2022 (Approximate), Having periods Age at Menarche: Age at First : Age at Menopause: Audit Associate History Comments: Sexual Activity: Yes; Male; Essure [...] external genitalia normal, normal Bartholin's glands, urethra, Edmonson's glands, no vulvar lesions, no cervical lesions, [...] year or sooner as needed Sofi Blanco APRN.ALEKSANDAR documented in this encounter [facility] 11-29-2022 History of Present illness Narrative Chronic [...] tylenol for pain documented in this encounter [facility] 11-29-2022 Instructions Gini Mcgarry TECHNOLOGIST - 11/29/2022 [...] office with concerns. documented in this encounter [facility] 11-15-2022 History of Present illness Narrative Right [...] weeks. Follow-up then. documented in this encounter [facility] 11-01-2022 History of Present illness Narrative Plantar [...] to reevaluate plantarly documented in this encounter [facility] 10-11-2022 History of Present illness Narrative Plantar [...] than for pain. documented in this encounter [facility] 09-27-2022 History of Present illness Narrative HPI [...] is too deep to really try anything [id number] and comes in today to have this [...] Start oral Medrol Dosepak tomorrow called into [facility] pharmacy for its anti-inflammatory properties. Regarding her [...] verrucous cantharidin treatment. documented in this encounter [facility] 09-27-2022 Instructions Abhay Miranda Jr., DPM - 09/27/2022 3:48 PM EST Take off bandaid tomorrow night. Wash well and apply new bandaid. Take off boot to drive, shower and to sleep. documented in this encounter [facility] 06-07-2022 History of Present illness Narrative SUBJECTIVE: [...] James Wheeler DO documented in this encounter [facility] 05-10-2022 History and physical note DATE OF SERVICE: May 10, 2022 PROBLEM: pelvic pain after Essure device placement, desires sterilization, persistent HPV DIAGNOSIS: as above PAST SURGICAL HISTORY: PAST SURGICAL HISTORY Procedure Laterality Date CHOLECYSTECTOMY HX ESSURE Bilateral 2016 Dr Herbert PAST MEDICAL HISTORY: PAST MEDICAL [...] 4 - Moderate documented in this encounter [facility] 01-23-2022 Chief complaint Narrative - Reported An interactive audio and video telecommunication system which permits real time communications between the patient (at the originating site) and provider (at the distant site) was utilized to provide this telehealth service.Verbal consent was requested and obtained from RONALDO WHITTEN on this date, 01/23/2022 10:45 AM , for a telehealth visit.Virtual visit [phone] Sx, Cough, Fever (101)Started 01/19 Covid tested 01/20 - Negative [facility] Work Phone: 01-16-2022 History of Present illness Narrative VIRTUAL VISIT DUE TO COVID19 .COUGH WITH FEVER OF 101X 4 DAYS .PER PT SHE HAD URGENT CARE VISIT AND HAD NEGATIVE COVID TEST (UNSURE IF IT WAS PCR OR RAPID TEST) . PT WAS EXPOSED TO INFLUENZA A LAST WEEK. COUGH IS LESS SEVERE ,BUT FEVER IS STILL PRESENT. NO DIARRHEA. [facility] Work Phone: 01-01-2022 History of Present illness Narrative VIRTUAL VISIT DUE TO COVID19 .SINUS CONGESTION WITH MILD COUGH AND R EAR PAIN 5/ ON AND OFF X 1 WEEK (EAR PAIN STARTED 2 DAYS AGO) . [facility] Internal Medicine Work Phone: 12-20-2021 History of Present illness Narrative VIRTUAL VISIT PROGRESS NOTE This is a virtual visit using [employer] video visit. It required patient-provider interaction for [...] which included preparing to see the patient, [id number] patient care, completing clinical documentation, obtaining and/or reviewing separately obtained history and counseling and educating the patient/family/caregiver James Wheeler DO documented in this encounter [facility] 11-27-2021 Miscellaneous Notes Signed. Sofi Blanco APRN.ALEKSANDAR Letter placed in AG's mailbox to sign when she returns tomorrow. documented in this encounter [facility] Chief complaint Narrative - Reported An interactive audio and video telecommunication system which permits real time communications between the patient (at the originating site) and provider (at the distant site) was utilized to provide this telehealth service.C/O CONGESTION AND R. EAR PAIN X [address] [facility] Internal Medicine Work Phone: [facility] Diagnosis Chronic pelvic pain in female- Primary Unspecified symptom associated with female genital organs Cervical high risk HPV (human papillomavirus) test positive Cervical high risk human papillomavirus (HPV) DNA test positive Pre-op exam Preoperative examination, unspecified Request for sterilization [facility]* Diagnosis Post-operative state- Primary Other postprocedural status documented in this encounter [facility] note* Diagnosis 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 Heel pain, bilateral Plantar fasciitis Plantar fascial fibromatosis Plantar warts Plantar wart Foot pain, right Pain in soft tissues of limb [facility] Diagnosis 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 Heel pain, bilateral Plantar fasciitis Plantar fascial fibromatosis Plantar warts Plantar wart Foot pain, right Pain in soft tissues of limb [facility] Diagnosis Foot pain, right- Primary Pain in soft tissues of limb Plantar warts Plantar wart [facility] Diagnosis Plantar warts- Primary Plantar wart Foot pain, right Pain in soft tissues of limb [facility] Diagnosis Plantar warts- Primary Plantar wart Foot pain, right Pain in soft tissues of limb [facility] Diagnosis Plantar warts- Primary Plantar wart [facility] Diagnosis Encounter for gynecological examination (general) [...] human papillomavirus (HPV) documented in this encounter [facility] note* Diagnosis Plantar warts- Primary Plantar wart [facility] Diagnosis Wellness examination- Primary Class 3 severe obesity due to excess calories with serious comorbidity and body mass index (BMI) of 40.0 to 44.9 in adult ([facility]/HCC) Positive depression screening Current moderate episode of major depressive disorder without prior episode ([facility]/HCC) documented in this encounter [facility] Work Phone: Evaluation note* Diagnosis DUB (dysfunctional uterine bleeding) Other disorder of menstruation and other abnormal bleeding from female genital tract [facility] Diagnosis Abnormal uterine bleeding due to endometrial polyp- Primary documented in this encounter [facility] note* Diagnosis Class 3 severe obesity due to excess calories with serious comorbidity and body mass index (BMI) of 40.0 to 44.9 in adult ([facility]/HCC)- Primary Current moderate episode of major depressive disorder without prior episode ([facility]) documented in this encounter [facility] Work Phone: History of Present illness Narrative* Presents today for 2 WEEK EAR INFECTION F/U. NO NEW COMPLAINTS * THYROID- FOLLOWS WITH ENDO DR. MARI GONZALEZ IN [place] * VIT D- DR. GONZALEZ ADDRESSES * ALLERGIES- START PRN LORATADINE AND FLONASE [facility] Internal Medicine Work Phone: Reason for referral (narrative)* Diagnostic Procedure Only (Routine) - Closed Specialty Diagnoses / Procedures Referred By Henrik pedroza Referred To Contact US IMAGING Diagnoses DUB (dysfunctional uterine bleeding) Procedures US FEMALE PELVIS TRANSVAG US TRANSVAGINAL Sofi Blanco APRN.CNP [address] [place] [address] [place] [id number] Referral ID Status Reason Start Date Expiration Date V isits Requested Visits Authorized [id number] Closed Auto-Generate d Referral 07/03/2023 08/01/2024 1 1 [facility] Summary Purpose Family History No Family History [...] OFFICE/OUTPATIENT NEW HIGH MDM 60-74 MINUTES Sofi Blanco APRN.PC INSTALLATION ENGINEER [address] [place] [address] Referral ID Status Reason Start Date Expiration Date Visits Requested Visits Authorized [id number] Authorized PCP Requested Referral 12/06/2022 12/06/2023 1 1 Additional Source Comments INFORMATION SOURCE (unrecogn ized section and content) DATE CREATED AUTHOR AUTHOR'S ORGANIZ ATION 03/03/2019 [facility] DATE CREATED AUTHOR AUTHOR'S ORGANIZ ATION 05/21/2021 [facility] DATE CREATED AUTHOR AUTHOR'S ORGANIZ ATION 04/17/2022 [facility] DATE CREATED AUTHOR AUTHOR'S ORGANIZ ATION 06/29/2022 [employer] DATE CREATED AUTHOR AUTHOR'S ORGANIZ ATION 11/02/2022 [facility] DATE CREATED AUTHOR AUTHOR'S ORGANIZ ATION 01/05/2023 [facility] DATE CREATED AUTHOR AUTHOR'S ORGANIZ ATION 08/17/2023 [facility] DATE CREATED AUTHOR AUTHOR'S ORGANIZ ATION 09/09/2023 [facility] Source Comments (unrecognize d section and content) In the event this informatio n is protected by the Federal Confidentiality of Alcohol and Drug Abuse Patient Records regulations: The Federal rules restrict any use of the information to criminally investigate or prosecute any alcohol or drug abuse patient.[facility] event this information is protected by the Federal Confidentiality of Alcohol and Drug Abuse Patient Records regulations: The Federal rules restrict any use of the information to criminally investigate or prosecute any alcohol or drug abuse patient.[facility] the event this information is protected by the Federal Confidentiality of Alcohol and Drug Abuse Patient Records regulations: The Federal rules restrict any use of the information to criminally investigate or prosecute any alcohol or drug abuse patient.[facility] the event this information is protected by the Federal Confidentiality of Alcohol and Drug Abuse Patient Records regulations: The Federal rules restrict any use of the information to criminally investigate or prosecute any alcohol or drug abuse patient.[facility] the event this information is protected by the Federal Confidentiality of Alcohol and Drug Abuse Patient Records regulations: The Federal rules restrict any use of the information to criminally investigate or prosecute any alcohol or drug abuse patient.[facility] the event this information is protected by the Federal Confidentiality of Alcohol and Drug Abuse Patient Records regulations: The Federal rules restrict any use of the information to criminally investigate or prosecute any alcohol or drug abuse patient.[facility] the event this information is protected by the Federal Confidentiality of Alcohol and Drug Abuse Patient Records regulations: The Federal rules restrict any use of the information to criminally investigate or prosecute any alcohol or drug abuse patient.[facility] the event this information is protected by the Federal Confidentiality of Alcohol and Drug Abuse Patient Records regulations: The Federal rules restrict any use of the information to criminally investigate or prosecute any alcohol or drug abuse patient.[facility] the event this information is protected by the Federal Confidentiality of Alcohol and Drug Abuse Patient Records regulations: The Federal rules restrict any use of the information to criminally investigate or prosecute any alcohol or drug abuse patient.[facility] Care Teams (unrecognized sec tion and content) Manager Technical Sales Relationship Specialty Start Date End Date Charito Clark PA [address] [place] [address] PCP - General Internal Medicine 09/19/18 Manager Technical Sales Relationship Specialty Start Date End Date PostvilleCharito oconnor PA [address] [place] [address] PCP - General Internal Medicine 09/19/18 Manager Technical Sales Relationship Specialty Start Date End Date Charito Clark PA [address] [place] [address] PCP - General Internal Medicine 09/19/18 Manager Technical Sales Relationship Specialty Start Date End Date No, Physician [facility] PCP - General 01/20/22 Manager Technical Sales Relationship Specialty Start Date End Date No, Physician [facility] PCP - General 01/20/22 Manager Technical Sales Relationship Specialty Start Date End Date No, Physician [facility] PCP - General 01/20/22 Manager Technical Sales Relationship Specialty Start Date End Date No, Physician [facility] PCP - General 01/20/22 Manager Technical Sales Relationship Specialty Start Date End Date No, Physician [facility] PCP - General 01/20/22 Manager Technical Sales Relationship Specialty Start Date End Date No, Physician [facility] PCP - General 01/20/22 Manager Technical Sales Relationship Specialty Start Date End Date Charito Clark PA [address] [place] [address] PCP - General Internal Medicine 09/19/18 Manager Technical Sales Relationship Specialty Start Date End Date Sofi Melton, CELL ASSEMBLY PINNER-PC INSTALLATION ENGINEER [address] [place] [place] [address] PCP - General 06/28/22 Manager Technical Sales Relationship Specialty Start Date End Date Charito Clark PA [address] [facility] [address] PCP - General Internal Medicine 09/19/18 Manager Technical Sales Relationship Specialty Start Date End Date Charito Clark PA [address] [facility] [address] PCP - General Internal Medicine 09/19/18 Manager Technical Sales Relationship Specialty Start Date End Date Charito Clark PA [address] [facility] [address] PCP - General Internal Medicine 09/19/18 Manager Technical Sales Relationship Specialty Start Date End Date Sofi Melton, CELL ASSEMBLY PINNER-PC INSTALLATION ENGINEER [address] [place] [address] PCP - General 06/28/22 Reason for Visit [...] US FEMALE PELVIS TRANSVAG US TRANSVAGINAL Sofi Blanco, PIOTR.PC INSTALLATION ENGINEER [address] [place] [address] [place] [id number] Referral ID Status Reason Start Date Expiration Date V isits Requested Visits Authorized [id number] Closed Auto-Generate d Referral 07/03/2023 08/01/2024 1 [...] BE BASED ON THE PRIMARY CLINICAL RECORDS. [employer] provides no warranty or guarantee of the accuracy or completeness of information in this document.
== END | disposition home or self-care (01) ==
LOC: BIMLAB 15:56
PROVIDERS: Referring Provider Internal Medicine Endocrinology, Diabetes & Metabolism; Visit Provider Internal Medicine Endocrinology, Diabetes & Metabolism
DX: E03.8 Other specified hypothyroidism (principal); E06.3 Autoimmune thyroiditis; E55.9 Vitamin D deficiency, unspecified
CPT/HCPCS: 36415; 82306; 84439; 84443

== ENCOUNTER 2024-04-28 11:58 | Emergency (ER) | payer OTHER, SELFPAY ==
[2024-04-28 12:00] VITALS: BP 169/102; PULSE 95; RESP 16; TEMP 35.7; O2SAT 98; BMI 41.9
--- NOTE | 2024-04-28 12:14 | EDS_ITS ---
HPI History of Present Illness Chief Complaint: Dizziness Detail of Chief Complaint: Low back pain Informant: patient Onset/Context/Timing Onset: Days Context: Gradual Onset Injury: lifting, twisting and bending Timing: Continuous Quality: Dull and Aching Location: Lumbar Current Severity: Mild Maximum Severity: Mild Worsened by: improves with Movement Relieved by: Remaining Still Associated Symptoms Associated Symptoms: Negative for Numbness, Tingling, Radiation to Right Leg, Radiation to Left Leg, Abdominal Pain, Dysuria, Unable to Ambulate, Unable to Transfer, Urinary Retention, Urinary Incontinence, Constipation or Fecal Incontinence Narrative Narrative: 34-year-old female history of depression and hypothyroidism. Currently on Wellbutrin for depression. Was doing a lot of cooking and cleaning over the weekend. Thinks she injured her back during that. Took an out-of-date pain medication this morning around 8 AM. Was concerned that there was an interaction with her Wellbutrin. Denies any vomiting or diarrhea. No dysuria. No fever. No headache, chest pain, abdominal pain or shortness of breath. 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 Home Medications ?Medication ?Instructions ?Recorded ?Last Taken ?Type ibuprofen 600 mg tablet 600 mg PO Q6H PRN pain #20 tabs 05/23/22 Unknown Rx cholecalciferol (vitamin D3) 1,250 1,250 mcg PO QWEEK #12 caps 10/24/23 Unknown Rx mcg (50,000 unit) capsule levothyroxine 175 mcg tablet 175 mcg PO DAILY #90 tabs 10/24/23 Unknown Rx bupropion HCl 300 mg 24 hr tablet, 300 mg PO DAILY 04/28/24 Unknown History extended release omeprazole 40 mg capsule,delayed 40 mg PO DAILY 04/28/24 Unknown History release Allergy/AdvReac Type Severity Reaction Status Date / Time No Known Allergies Allergy Verified 04/28/24 12:00 Family History Other Colon cancer Diabetes Hypertension Thyroid disorder Surgical History Hx of bilateral salpingectomy Hx of surgical procedure History of cholecystectomy Social History Smoking Status: Never smoker alcohol intake: current alcohol intake frequency: holidays/special occasions only ROS ROS ED ROS Narrative Denies recent illness. Constitutional Constitutional ED: Denies chills Eyes Eyes: Denies blurry vision ENT ENT ED: Denies ear pain Cardiovascular Cardiovascular: Denies chest pain Respiratory/Chest Respiratory/Chest: Denies dyspnea Gastrointestinal Gastrointestinal: Denies abdominal pain Genitourinary Genitourinary ED: Denies dysuria or hematuria Musculoskeletal Musculoskeletal: Reports back pain; Denies arthralgias, myalgias or neck pain Integumentary Denies abscess or Abrasions Neurologic Neurologic: Denies headache(s) Psychiatric Psychiatric: Denies suicidal ideation Endocrine Endocrinology: Denies cold intolerance Hematologic/Lymphatic Hematologic/Lymphatic: Denies easy bleeding Allergic/Immunologic Allergic/Immunologic ED: Denies mouth swelling EXAM Physical Exam Narrative Exam Narrative: Appearing 34-year-old female sitting upright in bed. Vital signs are stable afebrile. Pulse ox 90% on room air no hypoxia. H EENT exam unremarkable. Pupils round react to light. No facial droop. Normal speech. Nontender. Neck nontender no lymphadenopathy. Lungs clear to auscultation bilaterally. Heart regular rate and rhythm rate about 90 no murmur. Chest wall ribs nontender. Abdomen soft nontender. Moving all 4 extremities. 5 out of 5 diesel mechanic apprentice strength. Dorsi plantarflexion intact. Normal sensation. Normal range of motion. Neurologically she is awake alert no focal motor deficits. NIH is 0. Back exam cervical and thoracic spine and soft tissue nontender. Paralumbar soft tissue tenderness consistent with myofascial lumbar strain. Spine itself is nontender. No bruising or redness. Const Vital Signs: 04/28/24 12:00 Temperature 96.2 F L Temperature Source Temporal Pulse Rate 95 Respiratory Rate 16 Blood Pressure 169/102 H Blood Pressure Mean 124 Pulse Ox 98 Oxygen Delivery Method Room Air Positive well nourished and well developed; Negative for cachectic, contractures or unkempt General Appearance ED: well developed and NAD; Negative for unkempt, cachectic, contractures or pallor Nutritional Appearance: Negative for cachectic HEENT Reports moist mucous membranes Negative for trauma or tenderness Eyes PERRL and EOMs intact bilaterally General Eye ED: Negative for pale conjunctiva or scleral icterus Neck no lymphadenopathy, supple and no JVD General: Negative for tenderness Resp normal respiratory effort and clear to auscultation bilaterally Effort and Inspection: Negative for pain with movement Auscultation: Negative for rales, rhonchi, wheezes or diminished lung sounds Cardio regular rate, regular rhythm, S1 normal heart sound, S2 normal heart sound and no murmurs Rate: Negative for bradycardia or tachycardic Rhythm: Negative for abnormal rhythm GI normal to inspection, nondistended, normoactive bowel sounds, soft to palpation, non-tender, non-distended and no masses Palpation: Negative for tender, guarding or rebound tenderness present Back/Spine normal to inspection; Negative for no thoracic nor lumbar tenderness Back/Spine Narrative: Paralumbar soft tissue tenderness consistent with myofascial strain or sprain. Cervical Spine: Negative for cervical spine tenderness Extremity normal to inspection and no clubbing, cyanosis or edema General Extremety ED: Negative for edema or tenderness General Extremity: Negative for edema Neuro oriented x3 and no sensory deficits noted Sensorium / Orientation: alert; Negative for confused, lethargic or stuporous Motor Exam: strength 5/5 throughout Psych mental status grossly normal Appearance: Negative for unkempt Mood & Affect: Negative for sad or tearful Skin no rashes or lesions noted and no wounds General Skin Exam: Negative for jaundice or pallor Lesions: No lesion noted Rashes: No rashes noted Trauma: Negative for abrasion or puncture Wounds: Negative for wounds noted MDM MDM MDM Narrative Medical decision making narrative: 34-year-old with a strain lower back. We discussed ways to treat that. She is neurovascularly intact with good strength and sensation. She was concerned may be a reaction from a pain medication she took this morning with her Wellbutrin. I told her that medication will eventually be out of her system later today. There is no specific test to do for that. She is comfortable being discharged to home with outpatient follow-up as needed. She had me throw that pain medication away. Discharge Plan Triage Chief Complaint: Dizziness ED Provider: Rishi Desouza Dx/Rx/DC Orders Clinical Impression: Dizziness, Acute lumbosacral myofascial strain Instructions: ED Back Sprain/Strain Prescriptions: No Action levothyroxine 175 mcg tablet 175 mcg PO DAILY Qty: 90 3RF cholecalciferol (vitamin D3) 1,250 mcg (50,000 unit) capsule 1,250 mcg PO QWEEK Qty: 12 2RF ibuprofen 600 mg tablet 600 mg PO Q6H PRN (Reason: pain) Qty: 20 0RF bupropion HCl 150 mg tablet extended release 24 hr 150 mg PO DAILY Activity Restrictions/Additional Instructions: Hot shower, warm bath, hot tub and massage for your lower back strain. Motrin and Tylenol for pain. Follow-up with your doctor if not improving. The pain medication you took around 8 AM will be out of your system in the next several hours. Print Language: Hebrew Disposition Disposition: Home, Self Care
[2024-04-28 12:21] VITALS: BP 151/92
[2024-04-28 12:25] VITALS: BP 141/98; PULSE 82; RESP 16; TEMP 36; O2SAT 99
== END 2024-04-28 12:28 | disposition home or self-care (01) ==
LOC: ED 12:27
PROVIDERS: Emergency Provider Emergency Medicine; PCP Nurse Practitioner Family; Visit Provider Emergency Medicine
DX: S39.012A Strain of muscle, fascia and tendon of lower back, initial encounter (principal); R42 Dizziness and giddiness; E03.9 Hypothyroidism, unspecified; F32.A Depression, unspecified; Z79.899 Other long term (current) drug therapy; E06.3 Autoimmune thyroiditis; X50.9XXA Other and unspecified overexertion or strenuous movements or postures, initial encounter
CPT/HCPCS: 99282

== ENCOUNTER → 2024-10-28 | Outpatient (CLI) | payer OTHER, SELFPAY ==
[2024-10-28 17:06] LABS: Thyroid Stim Hormone (TSH) 0.555 uIU/mL (0.300-4.200)
== END | disposition home or self-care (01) ==
LOC: BIMLAB 15:52
PROVIDERS: PCP Nurse Practitioner Family; Referring Provider Internal Medicine Endocrinology, Diabetes & Metabolism; Visit Provider Internal Medicine Endocrinology, Diabetes & Metabolism
DX: E03.8 Other specified hypothyroidism (principal); E06.3 Autoimmune thyroiditis
CPT/HCPCS: 36415; 84439; 84443

== ENCOUNTER 2025-01-21 10:30 | Outpatient (RCR) | payer OTHER, SELFPAY ==
--- NOTE | 2024-10-22 17:05 | HP.PTEVAL_ITS ---
Patient's Visit Information Visit Information Visit Information: RONALDO WHITTEN is a 34 year old F referred to Physical Therapy by Dr. Arabella Knowles MD with a diagnosis of MUSCLE WEAKNESS, HYPERMOBILITY OF JOINTS AND MULTIPLE JOINT PAIN.. Date of Evaluation: 10/22/24 Physical Therapist: Natalie Morejon, PT, Cert MDT Visit Plan Frequency: 1-2x /Week Duration: 8-12 WKS Plan: AQUATIC THERAPY STARTING WITH ONE TIME A WK X 4 TO 6 WEEKS AND INCREASING TO 2 TIMES A WK X 4 TO 6 WEEKS ABLE FOR CORE, UE AND LE STRENGTH AND STABILITY TRAINING TOLERATED. 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 MOM OF 8 AND 10 YEAR OLDS. 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 Disability: NO Present symptoms: PATIENT REPORTS SHE HAS NON SPECIFIC PAIN ALL OVER ALL THE TIME. PATIENT REPORTS SHE HAS BEEN GETTING A LOT OF WIERD SX'S LATELY LIKE TOES GETTING PURPLE, CRAMPS IN ANKLE, TOES AND HAND. TODAY HANDS GOT RED DURING THIS PT EVAL BEFORE TESTING EVEN STARTED. FACE HAS BEEN FLUSHING MORE TOO AND RANDOMLY. Present since: ALL OF PATIENTS LIFE Pain Scale: WORST 8/10, LEAST 4/10 Currently: 4/10 Is it getting better, worse or staying the same: GETTING WORSE IN KNEES, BACK, HANDS AND R ELBOW Commenced as a result of: NO APPARENT REASON Worse: SOMETIMES COLD WEATHER, STRESS, BEING ACTIVE Better: HEATING PAD, REST, HOT SHOWER Disturbed sleep: YES Previous history/Previous treatment: PHYSICAL THERAPY FOR LBP ABOUT 4 YEARS AGO - HELPED EPISODED OF PAIN. 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 PATIENT REPORTS SHE CAN NOT HAVE HER BACK TOUCHED EVEN LIGHTLY OR IT SENDS HER TO TEARS. DIET AND MEDICATION WEIGHT LOSS PROGRAM PHYSICAIN SUPERVISED FEBRUARY 2024 TO PRESENT WITH 50 LB WEIGHT LOSS - PAIN HAS INCREASED DURING THIS TIME. PATIENT REPORTS SHE WALKS FOR EXERCISE AND SHE DOESN'T HAVE INCREASED PAIN WALKING - 2100 TO 6200 STEPS/DAY. JUST TRIES TO GET EXTRA STEPS IN A DAY. Coughing/sneezing/straining: INCREASES ARM PAIN AT TIMES. Gait: PATIENT DENIES USE OF AD'S. STATES SHE FALLS A LOT IN GENERAL AND ROLLS HER ANKLES A LOT. SLIPPED ON WET FLOOR ABOUT 2 YEARS AGO. Bowel or Bladder Dysfunction: NO Accidents: NO MAJOR MVA'S. ONE SIGNIFICANT FALL 2 YEARS AGO - FULL RECOVERY. Unexplained weight loss: NO Imaging: RECENT L KNEE X-RAY - NORMAL PER PATIENT REPORT. PMH/Recent major surgery: HYPOTHYROIDISM, DEPRESSION. OTHER: GENETIC TESTING PENDING NEXT WEEK FOR JACOBO DANLOS AND OTHER CONDITIONS. 3 MONTHS AGO DOG RAN INTO [facility] AND STILL HAS A LUMP THERE. HAD US ABOUT 2 WKS AND WILL GET RESULTS 10/26/24. Objective Objective: Sitting/Standing Posture: PATIENT STANDS IN ANTERIOR PELVIC TILT. INCREASED KYPHOSIS. L ILIAC CREST LOWER THAN R. KATT PES CAVAS AND GENU VALGUS. NO RELEVANT LATERAL LUMBAR SHIFT. Active Correction of posture: PATIENT ABLE TO PARTIALLY CORRECT, DOES NOT MAINTAIN AND INCREASES PAIN. Other Observations: INDEP GAIT INTO PT WITH FAIR CADANCE, FAIR STRIDE LENGTH AND NO AD'S. NO LOB. ABLE TO TRANSFER INDEP FROM SIT TO STAND WITH HANDS ON KNEES. ROM deficit: MILD KATT LE HS AND CALF TIGHTNESS. HYPERMOBILITY UE'S. Motor deficit: R > L LE WEAKNESS. R HIP 4-/5, R KNEE EXT 4-/5, R KNEE FLEX 5/5. L HIP 4/5, L KNEE EXT 4/5, L KNEE FLEX 5/5. KATT SHLD'S GROSSLY 4/5. OTHER: PATIENT ABLE TO HEEL WALK AND TOE WALK WITHOUT UE ASSIST. Dural Signs: NEGATIVE KATT LE'S Lumbar mvmt loss: flex - MIN ext - MOD R SG - MIN L SG - MIN PATIENT C/O INCREASED LOW BACK PAIN WITH LUMBAR ROM TESTING ALL PLANES ESPECIALLY EXTENSION ROM TESTING BUT NW A RESULT. ONLY ONE REPETITION TESTED. Core strength: POOR. ESPECIALLY LUMBAR EXTENSORS. Palpation: PATIENT REFUSED. THIS PT MINIMIZED ALL PALPATION INCLUDING SENSORY TESTING TODAY DUE TO PATIENT REPORTS OF HYPERSENSATIVITY. Balance/Special Test Scores Lower Extremity Functional Score: 45 Goals Goal 1:: DECREASE C/O GENERALIZED PAIN BY AT LEAST 50% TO EASE ADL'S. Goal Time Frame: 8-12 Weeks Goal 2:: PATIENT WILL SCORE AT LEAST 8 POINTS BETTER ON THE LEFS QUESTIONNAIRE TO EASE ADL'S Goal Time Frame: 8-12 Weeks Goal 3:: PATIENT WILL HAVE INCREASED PAINFREE TRUNK MOBILITY TO EASE ADL'S Goal Time Frame: 4-6 Weeks Goal 4:: PATIENT WILL HAVE INCREASED CORE STRENGTH FROM POOR TO FAIR TO IMPROVE ADL FUNCTION Goal Time Frame: 6-8 Weeks Goal 5:: PATIENT WILL BE INDEP WITH A WATER EX PROGRAM FOR CONTINUED IMPROVEMENT ONCE FORMAL PHYSICAL THERAPY CONCLUDES. Goal Time Frame: 6-8 Weeks Rehabilitation Potential Rehabilitation Potential: Good Anticipated Interventions Patient/Client Instruction: Educate patient on: Condition, Plan of Care and Risk Factors For the Purpose of:: To improve self management Therapeutic Exercise to Include: Strength training, Body mechanics, Postural training, Neuromotor development, Dynamic Lumbar Stabilization and Scapular Strength/Stabilization For the Purpose of:: To decrease pain, To improve muscle performance and motor function, To increase tolerance to activity/condition/position, To improve ability of physical actions for home/community/work/leisure and To improve self management Text: Thank you for the opportunity to evaluate your patient. For Medicare and Medicare HMO plans, please review the plan of care and approve it. It will need to be FAXED BACK to us at [phone] for Medicare purposes. For Medicare only, by signing this I certify the plan of care. Please let me know if there are questions or concerns regarding this plan of care. Physician Signature: Date:
--- NOTE | 2024-12-03 10:44 | HP.PTREVAL_ITS ---
Re-Evaluation Intro: Dr. Arabella Knowles MD, It has been my pleasure to treat RONALDO WHITTEN over the last 5 visits for MUSCLE WEAKNESS, HYPERMOBILITY OF JOINTS AND MULTIPLE JOINT PAIN.. Please see the progress note below for an update on the physical therapy plan of care! Subjective Subjective: PATIENT STATES I'VE HAD MORE GOOD DAYS. SHE REPORTS SHE IS ENCOURAGED BY THE [facility]. PATIENT REPORTS US OF [facility] SHOWED HEMOTOMA AND IT IS IMPROVING. THEY WILL CONTINUE TO MONITOR IF IT DOESN'T GO AWAY COMPLETELY. ARY'T TO GET RESULTS OF GENETIC TESTING HAS BEEN R/S'D FOR 12/09/24 BUT SHE STATES THE TESTING IS NEGATIVE FOR CONNECTIVE TISSUE DISORDERS. PATIENT DENIES ANY NEW SYMPTOMS SINCE STARTING AQUATIC THERAPY AND FOUND AQUATIC THERAPY BENFICIAL. PATIENT STATES WATER THERAPY IS HELPING HER LEARN BETTER MOVEMENT PATTERNS TO REDUCE HER PAIN AND SHE IS LEARNING A LOT. SHE REPORTS MISSING 2 POOL ARY'TS DUE TO ILLNESS AND MENSTRATION AND SHE WOULD LIKE TO RESUME WATER EX NOW. ONLY ABLE TO COME ONCE A WEEK BUT ONCE SUMMER GETS HERE WILL HAVE AN OUTSIDE POOL SHE CAN USE. Objective Objective/Function: PATIENT WAS SEEN TODAY FOR RE-ASSESSMENT OF PROGRESS TOWARD THE SET PT GOALS AND THE NEED FOR FURTHER PHYSICAL THERAPY VS READINESS FOR DISCHARGE. PATIENT IS MAKING SLOW PROGRESS WITH AQUATIC THERAPY AFTER JUST 3 SESSIONS. CORE AND GLUT WEAKNESS EVIDENT. SHE IS A GOOD CANDIDATE TO CONTINUE PT BASED ON PROGRESS MADE AND ROOM FOR FURTHER IMPROVEMENT. UPON EXAM TODAY: INDEP GAIT INTO PT WITH GOOD CADANCE, FAIR STRIDE LENGTH AND NO AD'S. NO LOB. ABLE TO TRANSFER INDEP FROM SIT TO STAND WITH HANDS ON KNEES. KATT GENU VALGUS AND KATT FOOT PRONATION. 30 STS TEST = 5 WITH HANDS ACROSS CHEST - PATIENT UNABLE TO COMPLETE 30 SEC DUE TO C/O PAIN IN LEGS (AUDIBLE SNAPPING IN LE'S). TUG TEST - 6.95 SEC WITH AUDIBLE SNAPPING IN LE'S AND C/O LE PAIN, NO AD'S OR LOB. Lumbar mvmt loss: flex - MIN ext - MIN R SG - MIN L SG - MIN PATIENT C/O INCREASED LOW BACK PAIN WITH LUMBAR ROM TESTING ALL PLANES ESPECIALLY EXTENSION ROM TESTING BUT NW A RESULT. ONLY ONE REPETITION TESTED. Core strength: POOR. ESPECIALLY LUMBAR EXTENSORS. Plan Plan Plan: CONTINUE AQUATIC THERAPY ONCE A WK X 6 TO 8 WEEKS FOR PAIN RELIEF, CORE, UE AND LE STRENGTH AND STABILITY TRAINING TOLERATED. PATIENT AGREEABLE. Balance/Gait/Functional tests Balance/Special Test Scores Lower Extremity Functional Score: 58 Goals Goals Goal 1:: DECREASE C/O GENERALIZED PAIN BY AT LEAST 50% TO EASE ADL'S. Goal Time Frame: 8-12 Weeks Goal Progress: Progressing Goal 2:: PATIENT WILL SCORE AT LEAST 8 POINTS BETTER ON THE LEFS QUESTIONNAIRE TO EASE ADL'S Goal Time Frame: 8-12 Weeks Goal Progress: Goal Met Goal 3:: PATIENT WILL HAVE INCREASED PAINFREE TRUNK MOBILITY TO EASE ADL'S Goal Time Frame: 4-6 Weeks Goal Progress: Progressing Goal 4:: PATIENT WILL HAVE INCREASED CORE STRENGTH FROM POOR TO FAIR TO IMPROVE ADL FUNCTION Goal Time Frame: 6-8 Weeks Goal 5:: PATIENT WILL BE INDEP WITH A WATER EX PROGRAM FOR CONTINUED IMPROVEMENT ONCE FORMAL PHYSICAL THERAPY CONCLUDES. Goal Time Frame: 6-8 Weeks Goal Progress: Progressing Anticipated Interventions Anticipated Interventions Patient/Client Instruction: Educate patient on: Condition, Plan of Care and Risk Factors For the Purpose of:: To improve self management Therapeutic Exercise to Include: Strength training, Body mechanics, Postural training, Neuromotor development, Dynamic Lumbar Stabilization and Scapular Strength/Stabilization For the Purpose of:: To decrease pain, To improve muscle performance and motor function, To increase tolerance to activity/condition/position, To improve ability of physical actions for home/community/work/leisure and To improve self management Re-Evaluation Ending Re-evaluation ending: Please do not hesitate to contact me at [phone] by phone or Fax: if you have questions or concerns regarding this new plan of care! Sincerely, Natalie Morejon, PT, Cert MDT
== END 2025-01-21 19:00 | disposition home or self-care (01) ==
LOC: PT 10:30
PROVIDERS: PCP Nurse Practitioner Family; Referring Provider Internal Medicine; Visit Provider Internal Medicine
DX: M62.81 Muscle weakness (generalized) (principal); M24.9 Joint derangement, unspecified; M25.50 Pain in unspecified joint
CPT/HCPCS: 97113; 97162; 97530